=== PATIENT | male | born 1990 | race Caucasian/White ===

== ENCOUNTER 2017-10-21 16:32 | Emergency (ER) | payer BC ==
--- NOTE | 2017-10-21 18:06 | EDM.PDOC ---
ED HPI GENERAL MEDICAL PROBLEM - General Chief Complaint: Genitourinary Problem Stated Complaint: PAIN IN ABDOMEN AND TESTICLES Time Seen by Provider: 10/21/17 16:36 Source of Information: Reports: Patient History Limitations: Reports: No Limitations - History of Present Illness INITIAL COMMENTS - FREE TEXT/NARRATIVE: Presents to the ER with a one year history of testicular pain off-and-on. He noticed it yesterday and then today it was more constant, he called his primary care provider who told him to come to the ER. He states that both of his testicles are tender right a little more than left. He also has some pain radiating eating up into his groin and in the low back in the SI joint area. No fever, scrotal swelling, penile discharge, dysuria. He is sexually active with one long-term partner. He had a vasectomy one year ago. He is otherwise healthy with no chronic medical problems. bilateral testicle pain Pain Score (Numeric/FACES): 6 - Related Data Allergies Allergy/AdvReac Type Severity Reaction Status Date / Time No Known Allergies Allergy Verified 10/21/17 16:44 Home Meds: Home Meds Levofloxacin [Levaquin] 500 mg PO DAILY #10 tablet 10/21/17 [Rx] Past Medical History - Past Health History Medical/Surgical History: Denies Medical/Surgical History - Infectious Disease History Infectious Disease History: Reports: None Social & Family History - Family History Family Medical History: Noncontributory - Tobacco Use Smoking Status *Q: Current Every Day Smoker Years of Tobacco use: 8 Packs/Tins Daily: 0.3 - Caffeine Use Caffeine Use: Reports: Coffee - Alcohol Use Days Per Week of Alcohol Use: 2 Number of Drinks Per Day: 6 Total Drinks Per Week: 12 - Recreational Drug Use Recreational Drug Use: No ED ROS GENERAL - Review of Systems Review Of Systems: ROS reveals no pertinent complaints other than HPI. ED EXAM, RENAL/ - Physical Exam Exam: See Below Exam Limited By: No Limitations General Appearance: Alert, No Apparent Distress Ears: Normal External Exam Nose: Normal Inspection Throat/Mouth: Normal Inspection Head: Atraumatic, Normocephalic Neck: Normal Inspection Respiratory/Chest: No Respiratory Distress, Lungs Clear, Normal Breath Sounds Cardiovascular: Normal Peripheral Pulses, Regular Rate, Rhythm, No Murmur GI/Abdominal: Soft (Male) Exam: Normal Inspection, Circumcised, Testicular Tenderness (L), Testicular Tenderness (R). No: Inguinal Lymphadenopathy, Scrotal Swelling, Scrotum Tenderness (L), Testicular Mass, Urethral Discharge Course - Vital Signs Last Recorded V/S: Last Vital Signs Temp 36.3 C 10/21/17 16:45 Pulse 77 10/21/17 16:45 Resp 18 10/21/17 16:45 BP 142/73 H 10/21/17 16:45 Pulse Ox 97 10/21/17 16:45 - Orders/Labs/Meds Orders: Active Orders 24 hr Category Date Time Status Scrotal Duplex Ltd [US] Stat Exams 10/21/17 17:14 Ordered Testicular US [Scrotum and Contents] [US] Stat Exams 10/21/17 17:08 Ordered UA W/MICROSCOPIC [URIN] Stat Lab 10/21/17 17:07 Ordered Labs: Laboratory Tests 10/21/17 10/21/17 Range/Units 17:05 17:23 WBC 11.59 H (4.0-11.0) K/uL RBC 5.40 (4.50-5.90) M/uL Hgb 16.4 (13.0-17.0) g/dL Hct 47.2 (38.0-50.0) % MCV 87.4 (80.0-98.0) fL MCH 30.4 (27.0-32.0) pg MCHC 34.7 (31.0-37.0) g/dL RDW Std Deviation 41.7 (28.0-62.0) fl RDW Coeff of Philip 13 (11.0-15.0) % Plt Count 270 (150-400) K/uL MPV 10.30 (7.40-12.00) fL Neut % (Auto) 64.0 (48.0-80.0) % Lymph % (Auto) 25.7 (16.0-40.0) % [place] % (Auto) 8.3 (0.0-15.0) % Eos % (Auto) 1.2 (0.0-7.0) % Baso % (Auto) 0.8 (0.0-1.5) % Neut # (Auto) 7.4 H (1.4-5.7) K/uL Lymph # (Auto) 3.0 H (0.6-2.4) K/uL [place] # (Auto) 1.0 H (0.0-0.8) K/uL Eos # (Auto) 0.1 (0.0-0.7) K/uL Baso # (Auto) 0.1 (0.0-0.1) K/uL Nucleated RBC % 0.0 /100WBC Nucleated RBCs # 0 K/uL Urine Color YELLOW Urine Appearance CLEAR Urine pH 6.0 (5.0-8.0) Ur Specific [place] 1.025 (1.001-1.035) Urine Protein NEGATIVE (NEGATIVE) mg/dL Urine Glucose (UA) NEGATIVE (NEGATIVE) mg/dL Urine Ketones NEGATIVE (NEGATIVE) mg/dL Urine Occult Blood NEGATIVE (NEGATIVE) Urine Nitrite NEGATIVE (NEGATIVE) Urine Bilirubin NEGATIVE (NEGATIVE) Urine Urobilinogen 0.2 (<2.0) EU/dL Ur Leukocyte Esterase NEGATIVE (NEGATIVE) Urine RBC 0-1 (0-2/HPF) Urine WBC 0-1 (0-5/HPF) Ur Epithelial Cells RARE (NONE-FEW) Urine Bacteria RARE (NEGATIVE) Departure - Departure Time of Disposition: 18:54 Disposition: Home, Self-Care 01 Condition: Good Clinical Impression: Epididymitis - Discharge Information Prescriptions: Levofloxacin [Levaquin] 500 mg PO DAILY #10 tablet Referrals: Mohsen Loja MD [Primary Care Provider] - Forms: ED Department Discharge Additional Instructions: 1. Take your antibiotic daily as directed 2. Follow up with Dr. Loja. 3. Tylenol 500mg two tabs three times daily for pain 4. Scrotal support may be helpful to reduce pain. - My Orders Last 24 Hours: My Active Orders 10/21/17 17:07 UA W/MICROSCOPIC [URIN] Stat 10/21/17 17:08 Testicular US [Scrotum and Contents] [US] Stat - Assessment/Plan Last 24 Hours: My Active Orders 10/21/17 17:07 UA W/MICROSCOPIC [URIN] Stat 10/21/17 17:08 Testicular US [Scrotum and Contents] [US] Stat
--- NOTE | 2017-10-22 10:30 | US ---
EXAM DATE: 10/21/17 PATIENT'S AGE: 27 Patient: SUKUMAR RICE [facility] Facility: [facility], [place], [place] Site . Site : 1990 Study: US Testicle -10/21/2017 6:02:04 PM Ordering Physician: Doctor Ashton Final Report: INDICATION: Bilateral testicular tenderness TECHNIQUE: Ultrasound of the scrotum and contents. Sonographic richards scale images were obtained with spectral and color Doppler waveform and spectral waveform analysis of the testicles. COMPARISON: None FINDINGS: Right testicle: 4.2 centimeter x 2.7 centimeter x 2.9 centimeter. Multiple hyper : Foci without posterior shadowing. No masses. No suspicious calcifications. Normal arterial and venous and blood flow using Doppler and spectral waveform analysis. Left testicle: 4.0 centimeter x 2.1 centimeter x 2.9 centimeter. Multiple hyperechoic foci without posterior shadowing. No masses. No suspicious calcifications. Normal arterial and venous and blood flow using Doppler and spectral waveform analysis. Epididymis: Increased vascularity right epididymal head possibly representing epididymitis. Normal blood flow. Other: No sign of hydrocele. No sign of varicocele. Scrotal wall is normal. IMPRESSION: Hyperemic right epididymal head possibly representing epididymitis. Nonspecific bilateral testicular parenchymal echogenic foci possibly representing calcifications. Dictated by Floyd Martinez MD @ 10/21/2017 6:26:47 PM Dictated by: Floyd Martinez MD @ 10/21/2017 18:26:52 (Electronic Signature) Report Signed by Proxy. EDISON
--- NOTE | 2017-10-22 10:30 | US ---
EXAM DATE: 10/21/17 PATIENT'S AGE: 27 Patient: SUKUMAR RICE [facility] Facility: [facility], [place], [place] Site . Site : 1990 Study: US Testicle -10/21/2017 6:02:04 PM Ordering Physician: Doctor Ashton Final Report: INDICATION: Bilateral testicular tenderness TECHNIQUE: Ultrasound of the scrotum and contents. Sonographic richards scale images were obtained with spectral and color Doppler waveform and spectral waveform analysis of the testicles. COMPARISON: None FINDINGS: Right testicle: 4.2 centimeter x 2.7 centimeter x 2.9 centimeter. Multiple hyper : Foci without posterior shadowing. No masses. No suspicious calcifications. Normal arterial and venous and blood flow using Doppler and spectral waveform analysis. Left testicle: 4.0 centimeter x 2.1 centimeter x 2.9 centimeter. Multiple hyperechoic foci without posterior shadowing. No masses. No suspicious calcifications. Normal arterial and venous and blood flow using Doppler and spectral waveform analysis. Epididymis: Increased vascularity right epididymal head possibly representing epididymitis. Normal blood flow. Other: No sign of hydrocele. No sign of varicocele. Scrotal wall is normal. IMPRESSION: Hyperemic right epididymal head possibly representing epididymitis. Nonspecific bilateral testicular parenchymal echogenic foci possibly representing calcifications. Dictated by Floyd Martinez MD @ 10/21/2017 6:26:47 PM Dictated by: Floyd Martinez MD @ 10/21/2017 18:26:52 (Electronic Signature) Report Signed by Proxy. EDISON
== END 2017-10-21 19:05 | disposition home or self-care (01) ==
LOC: MW.ED 16:32
DX: N45.1 Epididymitis (principal); F17.210 Nicotine dependence, cigarettes, uncomplicated; Z79.899 Other long term (current) drug therapy
CPT/HCPCS: 36415; 76870; 76870-26; 81001; 85025; 93976; 93976-26; 99284-25

== ENCOUNTER 2018-09-26 13:06 | Emergency (ER) | payer BC ==
[2018-09-26] MEDS ORDERED: Ketorolac 30 MG/ML SDV IVPUSH ONE (13:10)
--- NOTE | 2018-09-26 13:11 | EDM.PDOC ---
ED HPI GENERAL MEDICAL PROBLEM - General Chief Complaint: Abdominal Pain Stated Complaint: STOMACH PAIN Time Seen by Provider: 09/26/18 13:09 Source of Information: Reports: Patient History Limitations: Reports: No Limitations - History of Present Illness INITIAL COMMENTS - FREE TEXT/NARRATIVE: HISTORY AND PHYSICAL: Abdominal Pain History of present illness: Patient is a 28 year old male who presents to the emergency room with complaints of abdominal pain x 2 weeks. He states he initially noticed the upper abdominal pain after eating but states now the pain is constant. Pain is mainly to the right upper quadrant and goes into the right flank. States he does have tenderness to both left and right upper quadrant with palpation. No previous history of heartburn or ulcers. Patient denies any fever, chills, headache, change in vision, syncope or near syncope. Denies any chest pain, back pain, shortness of breath or cough. Denies any nausea, vomiting, diarrhea, constipation or dysuria. Has not noted any blood in urine or stool. Patient has been eating and drinking appropriately. Review of systems: As per history of present illness and below otherwise all systems reviewed and negative. Past medical history: As per history of present illness and as reviewed below otherwise noncontributory. Surgical history: As per history of present illness and as reviewed below otherwise noncontributory. Social history: See social history for further information Family history: As per history of present illness and as reviewed below otherwise noncontributory. Physical exam: General: Well-developed and well-nourished 28-year-old male. Alert and oriented. Nontoxic appearing and in no acute distress. HEENT: Atraumatic, normocephalic, pupils equal and reactive bilaterally, negative for conjunctival pallor or scleral icterus, mucous membranes moist, trachea midline. No drooling or trismus noted. No meningeal signs. No hot potato voice noted. Lungs: Clear to auscultation, breath sounds equal bilaterally, chest nontender. Heart: S1S2, regular rate and rhythm without overt murmur Abdomen: Soft, nondistended, mild RUQ/LUQ pain. Negative for masses or hepatosplenomegaly. Negative for costovertebral tenderness. Pelvis: Stable nontender. Genitourinary: Deferred. Rectal: Deferred. Skin: Intact, warm, dry. No lesions or rashes noted. Extremities: Atraumatic, moves all extremities per self without difficulty or deficits, negative for cords or calf pain. Neurovascular unremarkable. Neuro: Awake, alert, oriented. Cranial nerves II through XII unremarkable. Cerebellum unremarkable. Motor and sensory unremarkable throughout. Exam nonfocal. Notes: CT of the abdomen and pelvis shows no acute abnormality. The pancreas, gallbladder, kidney are unremarkable. Appendix is a normal size and appearance. Patient does have a slightly elevated white count, no fever. Lipase is elevated. Vital signs are stable. Patient has declined any nausea or vomiting over the past 2 weeks or during his ER visit here today. We did review his labs and CT results. We'll give him a limited amount of pain medication and encouraged him to follow-up with his primary care provider Dr. Loja for the general surgeon for further evaluation/management and reassessment of the elevated lipase. Supportive care measures were reviewed and discussed. Voices understanding and is agreeable to plan of care. Denies any further questions or concerns at this time. Diagnostics: CBC, CMP, UA, lipase, CT abdomen and pelvis Therapeutics: IV fluids, Toradol Prescription: Tramadol Impression: Abdominal Pain Elevated Lipase Plan: 1. Increase oral fluids. 2. [place] diet over next 24-48 hours. 3. Take pain medication as prescribed. 4. Follow up with [facility] or General Surgeon. Return to the ED as needed and as discussed. Definitive disposition and diagnosis as appropriate pending reevaluation and review of above. Duration: Week(s): Location: Reports: Abdomen Right Abdominal Pain Score (Numeric/FACES): 9 - Related Data Allergies Allergy/AdvReac Type Severity Reaction Status Date / Time No Known Allergies Allergy Verified 09/26/18 13:14 Home Meds: Home Meds Folic Acid 1 mg PO DAILY 09/26/18 [History] Methotrexate 4 tab PO WEEKLY 09/26/18 [History] traMADol [Ultram] 50 mg PO Q4H PRN #20 tab 09/26/18 [Rx] Past Medical History - Past Health History Medical/Surgical History: Denies Medical/Surgical History - Infectious Disease History Infectious Disease History: Reports: None Social & Family History - Family History Family Medical History: Noncontributory - Caffeine Use Caffeine Use: Reports: Coffee ED ROS GENERAL - Review of Systems Review Of Systems: ROS reveals no pertinent complaints other than HPI. ED EXAM, GI/ABD - Physical Exam Exam: See Below (See dictation) Course - Vital Signs Last Recorded V/S: Last Vital Signs Temp 97.2 F 09/26/18 13:15 Pulse 52 L 09/26/18 13:15 Resp 16 09/26/18 13:15 BP 130/82 09/26/18 13:15 Pulse Ox 99 09/26/18 13:15 - Orders/Labs/Meds Orders: Active Orders 24 hr Category Date Time Status Sodium Chloride 0.9% [Normal Saline] 1,000 ml Med 09/26/18 13:15 Active IV ASDIRECTED Medication Orders Sodium Chloride (Normal Saline) 1,000 mls @ 999 mls/hr IV ASDIRECTED CYNDI Last Admin: 09/26/18 13:28 Dose: 999 mls/hr Labs: Laboratory Tests 09/26/18 09/26/18 09/26/18 Range/Units 13:25 13:25 13:25 WBC 11.06 H (4.0-11.0) K/uL RBC 5.19 (4.50-5.90) M/uL Hgb 15.6 (13.0-17.0) g/dL Hct 46.9 (38.0-50.0) % MCV 90.4 (80.0-98.0) fL MCH 30.1 (27.0-32.0) pg MCHC 33.3 (31.0-37.0) g/dL RDW Std Deviation 44.9 (28.0-62.0) fl RDW Coeff of Philip 14 (11.0-15.0) % Plt Count 264 (150-400) K/uL MPV 10.30 (7.40-12.00) fL Neut % (Auto) 63.1 (48.0-80.0) % Lymph % (Auto) 26.9 (16.0-40.0) % [place] % (Auto) 7.0 (0.0-15.0) % Eos % (Auto) 2.1 (0.0-7.0) % Baso % (Auto) 0.9 (0.0-1.5) % Neut # (Auto) 7.0 H (1.4-5.7) K/uL Lymph # (Auto) 3.0 H (0.6-2.4) K/uL [place] # (Auto) 0.8 (0.0-0.8) K/uL Eos # (Auto) 0.2 (0.0-0.7) K/uL Baso # (Auto) 0.1 (0.0-0.1) K/uL Nucleated RBC % 0.0 /100WBC Nucleated RBCs # 0 K/uL Sodium 143 (136-148) mmol/L Potassium 4.1 (3.5-5.1) mmol/L Chloride 106 (98-107) mmol/L Carbon Dioxide 24.4 (21.0-32.0) mmol/L BUN 13 (7.0-18.0) mg/dL Creatinine 1.1 (0.8-1.3) mg/dL Est Cr Clr Drug Dosing 89.42 mL/min Estimated GFR (MDRD) > 60.0 ml/min Glucose 113 H (74-106) mg/dL Calcium 9.0 (8.5-10.1) mg/dL Total Bilirubin 0.5 (0.2-1.0) mg/dL AST 11 L (15-37) IU/L ALT 53 (14-63) IU/L Alkaline Phosphatase 78 (46-116) U/L Total Protein 7.3 (6.4-8.2) g/dL Albumin 3.8 (3.4-5.0) g/dL Globulin 3.5 (2.6-4.0) g/dL Albumin/Globulin Ratio 1.1 (0.9-1.6) Lipase 933 H (73-393) U/L Urine Color Urine Appearance Urine pH (5.0-8.0) Ur Specific [place] (1.001-1.035) Urine Protein (NEGATIVE) mg/dL Urine Glucose (UA) (NEGATIVE) mg/dL Urine Ketones (NEGATIVE) mg/dL Urine Occult Blood (NEGATIVE) Urine Nitrite (NEGATIVE) Urine Bilirubin (NEGATIVE) Urine Urobilinogen (<2.0) EU/dL Ur Leukocyte Esterase (NEGATIVE) H. pylori IgG Antibody (NEG) 09/26/18 09/26/18 Range/Units 13:25 14:18 WBC (4.0-11.0) K/uL RBC (4.50-5.90) M/uL Hgb (13.0-17.0) g/dL Hct (38.0-50.0) % MCV (80.0-98.0) fL MCH (27.0-32.0) pg MCHC (31.0-37.0) g/dL RDW Std Deviation (28.0-62.0) fl RDW Coeff of Philip (11.0-15.0) % Plt Count (150-400) K/uL MPV (7.40-12.00) fL Neut % (Auto) (48.0-80.0) % Lymph % (Auto) (16.0-40.0) % [place] % (Auto) (0.0-15.0) % Eos % (Auto) (0.0-7.0) % Baso % (Auto) (0.0-1.5) % Neut # (Auto) (1.4-5.7) K/uL Lymph # (Auto) (0.6-2.4) K/uL [place] # (Auto) (0.0-0.8) K/uL Eos # (Auto) (0.0-0.7) K/uL Baso # (Auto) (0.0-0.1) K/uL Nucleated RBC % /100WBC Nucleated RBCs # K/uL Sodium (136-148) mmol/L Potassium (3.5-5.1) mmol/L Chloride (98-107) mmol/L Carbon Dioxide (21.0-32.0) mmol/L BUN (7.0-18.0) mg/dL Creatinine (0.8-1.3) mg/dL Est Cr Clr Drug Dosing mL/min Estimated GFR (MDRD) ml/min Glucose (74-106) mg/dL Calcium (8.5-10.1) mg/dL Total Bilirubin (0.2-1.0) mg/dL AST (15-37) IU/L ALT (14-63) IU/L Alkaline Phosphatase (46-116) U/L Total Protein (6.4-8.2) g/dL Albumin (3.4-5.0) g/dL Globulin (2.6-4.0) g/dL Albumin/Globulin Ratio (0.9-1.6) Lipase (73-393) U/L Urine Color YELLOW Urine Appearance CLEAR Urine pH 6.0 (5.0-8.0) Ur Specific [place] 1.025 (1.001-1.035) Urine Protein NEGATIVE (NEGATIVE) mg/dL Urine Glucose (UA) NEGATIVE (NEGATIVE) mg/dL Urine Ketones NEGATIVE (NEGATIVE) mg/dL Urine Occult Blood NEGATIVE (NEGATIVE) Urine Nitrite NEGATIVE (NEGATIVE) Urine Bilirubin NEGATIVE (NEGATIVE) Urine Urobilinogen 0.2 (<2.0) EU/dL Ur Leukocyte Esterase NEGATIVE (NEGATIVE) H. pylori IgG Antibody NEGATIVE (NEG) Meds: Medications Generic Name Dose Route Start Last Admin Trade Name Freq PRN Reason Stop Dose Admin Sodium Chloride 1,000 mls @ 999 mls/hr 09/26/18 13:15 09/26/18 13:28 Normal Saline IV 999 mls/hr ASDIRECTED CYNDI Administration Discontinued Medications Generic Name Dose Route Start Last Admin Trade Name Freq PRN Reason Stop Dose Admin Iopamidol 100 ml 09/26/18 14:33 09/26/18 14:34 Isovue Multipack-370 (76%) IVPUSH 09/26/18 14:34 100 ml ONETIME STA Administration Ketorolac Tromethamine 30 mg 09/26/18 13:10 09/26/18 13:28 Toradol IVPUSH 09/26/18 13:11 30 mg ONETIME ONE Administration Morphine Sulfate 2 mg 09/26/18 15:00 09/26/18 15:40 Morphine IVPUSH 09/26/18 15:01 Not Given ONETIME ONE Ondansetron HCl 4 mg 09/26/18 15:00 09/26/18 15:39 Zofran IVPUSH 09/26/18 15:01 Not Given ONETIME ONE Departure - Departure Time of Disposition: 15:40 Disposition: Home, Self-Care 01 Clinical Impression: Elevated lipase Abdominal pain Qualifiers: Abdominal location: upper abdomen, unspecified Qualified Code(s): R10.10 - Upper abdominal pain, unspecified - Discharge Information Prescriptions: traMADol [Ultram] 50 mg PO Q4H PRN #20 tab PRN Reason: Pain Referrals: Mohsen Loja MD [Primary Care Provider] - Forms: ED Department Discharge Additional Instructions: The following information is given to patients seen in the emergency department who are being discharged to home. This information is to outline your options for follow-up care. We provide all patients seen in our emergency department with a follow-up referral. The need for follow-up, as well as the timing and circumstances, are variable depending upon the specifics of your emergency department visit. If you don't have a primary care physician on staff, we will provide you with a referral. We always advise you to contact your personal physician following an emergency department visit to inform them of the circumstance of the visit and for follow-up with them and/or the need for any referrals to a consulting specialist. The emergency department will also refer you to a specialist when appropriate. This referral assures that you have the opportunity for follow-up care with a specialist. All of these measure are taken in an effort to provide you with optimal care, which includes your follow-up. Under all circumstances we always encourage you to contact your private physician who remains a resource for coordinating your care. When calling for follow-up care, please make the office aware that this follow-up is from your recent emergency room visit. If for any reason you are refused follow-up, please contact the [facility] Emergency Department at and asked to speak to the emergency department charge nurse. [facility] [address] [place] [address] [address] [facility] - General Surgery Professional Building [address] [place] [address], [address] [place] [address] 1. Increase oral fluids. 2. [place] diet over next 24-48 hours. 3. Take pain medication as prescribed. 4. Follow up with [facility] or General Surgeon. Return to the ED as needed and as discussed. - My Orders Last 24 Hours: My Active Orders 09/26/18 13:15 Sodium Chloride 0.9% [Normal Saline] 1,000 ml IV ASDIRECTED - Assessment/Plan Last 24 Hours: My Active Orders 09/26/18 13:15 Sodium Chloride 0.9% [Normal Saline] 1,000 ml IV ASDIRECTED
[2018-09-26] MEDS ORDERED: Sodium Chloride 0.9% 1,000 ML IV SCH (13:15)
[2018-09-26 13:56] LABS: CHLORIDE,CL 106 mmol/L (98-107); SODIUM,NA 143 mmol/L (136-148)
[2018-09-26] MEDS ORDERED: Iopamidol 755 MG/ML 500 ML Multipack Bottle IVPUSH STA (14:33)
[2018-09-26] MEDS ORDERED: Morphine 2 MG/ML Syringe IVPUSH ONE (15:00)
[2018-09-26] MEDS ORDERED: Ondansetron 4 MG/2 ML SDV IVPUSH ONE (15:00)
--- NOTE | 2018-09-26 15:29 | CT ---
INDICATION: BILAT UPPER ABDOMINAL PAIN RADIATING INTO RIGHT FLANK/BACK FOR 2 WEEKS ON AND OFF. PT STATES STARTED AGAIN YESTERDAY AT NOON AND NEVER WENT AWAY TECHNIQUE: CT abdomen and pelvis acquired with i.v. 100 mL Isovue 370. Coronal and sagittal reformats were obtained. 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 Lower chest: Unremarkable. Liver: Unremarkable. Spleen: Unremarkable. Pancreas: Unremarkable. Gallbladder and bile ducts: Unremarkable. Kidneys: Unremarkable. No kidney or ureteral stones and no hydronephrosis seen. Simple cyst in right kidney measures 2.5 cm on series 201, image 69. Adrenal glands: Unremarkable. GI tract: Unremarkable. The appendix is normal in appearance and size. Vascular: Unremarkable. Lymph nodes: Unremarkable. Miscellaneous: Unremarkable. No pneumoperitoneum is seen. No significant ascites is noted. Pelvic Organs: Unremarkable. Bones: Unremarkable for age. IMPRESSION: 1. No acute abnormality in the abdomen or pelvis. No clear etiology identified for patient`s clinical symptoms of bilateral upper abdominal pain. Dictated by Steve Chow MD @ 09/26/2018 3:27:24 PM Please note that all CT scans at this facility use dose modulation, iterative reconstruction, and/or weight-based dosing when appropriate to reduce radiation dose to as low as reasonably achievable. Dictated by: Steve Chow MD @ 09/26/2018 15:27:35 (Electronically Signed)
== END 2018-09-26 15:49 | disposition home or self-care (01) ==
LOC: MW.ED 13:06
DX: R10.10 Upper abdominal pain, unspecified (principal); R74.8 Abnormal levels of other serum enzymes; Z79.899 Other long term (current) drug therapy
CPT/HCPCS: 36415; 74177; 80053; 81003; 83690; 85025; 86677; 96361; 96374; 99284; J1885; J7040; Q9967

== ENCOUNTER 2018-09-27 02:28 | Observation (INO) | payer BC ==
[2018-09-27] MEDS ORDERED: Ondansetron 4 MG/2 ML SDV IVPUSH ONE (02:47)
[2018-09-27] MEDS ORDERED: Morphine 2 MG/ML Syringe IVPUSH ONE (02:47)
[2018-09-27] MEDS ORDERED: Sodium Chloride 0.9% 10 ML Syringe FLUSH PRN (02:47)
[2018-09-27] MEDS ORDERED: Pantoprazole 40 MG Vial IVPUSH ONE (02:47)
[2018-09-27] MEDS ORDERED: Sodium Chloride 0.9% 2.5 ML Syringe FLUSH PRN (02:47)
[2018-09-27] MEDS ORDERED: Sodium Chloride 0.9% 1,000 ML IV ONE ×3 (02:47→09:59)
--- NOTE | 2018-09-27 02:51 | EDM.PDOC ---
ED HPI GENERAL MEDICAL PROBLEM - General Chief Complaint: Abdominal Pain Stated Complaint: STOMACH PAIN Time Seen by Provider: 09/27/18 02:42 - History of Present Illness INITIAL COMMENTS - FREE TEXT/NARRATIVE: HISTORY AND PHYSICAL: History of present illness: The patient is a 28-year-old male who is a history of a psoriasis variant for which she takes medications and he was seen here yesterday in our emergency department for upper abdominal pain and had a full workup including labs and a CAT scan and represented for persistent epigastric pain which has worsened. I reviewed his workup yesterday which included all normal blood tests except for a lipase of [address] scan. The patient says he went home and he was pushing hydration and eating small bites of food and the pain gradually increased and is more severe than it was yesterday. He's had nausea without vomiting and the pain is still in the epigastric area radiating to his back. He' s had no fevers chills cough or chest pain. The pain does not radiate to his lower abdomen or to the right side he has never had any GI problems or abdominal surgical history. He says he only drinks socially. The patient said he had a normal bowel movement earlier today which was not black or bloody and was formed. The patient was given tramadol yesterday and his ED visit and he says that is not controlling his pain Review of systems: As per history of present illness and below otherwise all systems reviewed and negative. Past medical history: As per history of present illness and as reviewed below otherwise noncontributory. Surgical history: As per history of present illness and as reviewed below otherwise noncontributory. Social history: No reported history of drug or alcohol abuse. Family history: As per history of present illness and as reviewed below otherwise noncontributory. Physical exam: General: Well-developed well-nourished man who is nontoxic and mildly overweight and is in no overt distress. Vital signs are noted by me HEENT: Atraumatic, normocephalic, negative for conjunctival pallor or scleral icterus, mucous membranes moist, throat clear, neck supple, nontender, trachea midline. Lungs: Clear to auscultation, breath sounds equal bilaterally, chest nontender. Heart: S1S2, regular rate and rhythm no overt murmurs Abdomen: Soft, nondistended, moderate epigastric tenderness but no significant right upper quadrant tenderness and mild left upper quadrant tenderness without rebound or guarding, bowel sounds are hypoactive. Negative for masses or hepatosplenomegaly. Negative for costovertebral tenderness. Pelvis: Stable nontender. Genitourinary: Deferred. Rectal: Deferred. Extremities: Atraumatic, negative for cords or calf pain. Neurovascular unremarkable. Neuro: Awake, alert, oriented. Cranial nerves II through XII unremarkable. Cerebellum unremarkable. Motor and sensory unremarkable throughout. Exam nonfocal. Diagnostics: CBC CMP amylase and lipase Patient had an H. pylori yesterday which was negative as well as a CT scan and all of his labs and testing were reviewed by me Therapeutics: IV placement, IV fluids morphine Zofran Protonix Dilaudid I discussed all testing results with the patient any saying that he still having this severe epigastric pain. I discussed the case with Dr. Schmid our hospitalist at 3:57 AM and he agrees to not reimage the patient and to admit him for IV fluids and bowel rest and probable clinical pancreatitis. The patient is agreeable to this Impression: Upper abdominal pain/elevated lipase, clinical pancreatitis Definitive disposition and diagnosis as appropriate pending reevaluation and review of above. epigastric Pain Score (Numeric/FACES): 10 - Related Data Allergies Allergy/AdvReac Type Severity Reaction Status Date / Time No Known Allergies Allergy Verified 09/27/18 02:41 Home Meds: Home Meds Folic Acid 1 mg PO DAILY 09/26/18 [History] Methotrexate 4 tab PO WEEKLY 09/26/18 [History] traMADol [Ultram] 50 mg PO Q4H PRN #20 tab 09/26/18 [Rx] Past Medical History - Past Health History Medical/Surgical History: Denies Medical/Surgical History Psychiatric History: Reports: PTSD Dermatologic History: Reports: Eczema - Infectious Disease History Infectious Disease History: Reports: None Social & Family History - Family History Family Medical History: Noncontributory - Tobacco Use Smoking Status *Q: Current Every Day Smoker Years of Tobacco use: 10 Packs/Tins Daily: 1 - Caffeine Use Caffeine Use: Reports: Coffee - Recreational Drug Use Recreational Drug Use: No ED ROS GENERAL - Review of Systems Review Of Systems: ROS reveals no pertinent complaints other than HPI. ED EXAM, GENERAL - Physical Exam Exam: See Below (See dictation) Course - Vital Signs Last Recorded V/S: Last Vital Signs Temp 36.1 C 09/27/18 02:30 Pulse 51 L 09/27/18 02:30 Resp 18 09/27/18 02:30 BP 126/78 09/27/18 02:30 Pulse Ox 96 09/27/18 02:30 - Orders/Labs/Meds Orders: Active Orders 24 hr Category Date Time Status Patient Status [ADT] Stat ADT 09/27/18 03:57 Ordered Sodium Chloride 0.9% [Normal Saline] 1,000 ml Med 09/27/18 04:00 Active IV ASDIRECTED Sodium Chloride 0.9% [Saline Flush] Med 09/27/18 02:47 Active 10 ml FLUSH ASDIRECTED PRN Sodium Chloride 0.9% [Saline Flush] Med 09/27/18 02:47 Active 2.5 ml FLUSH ASDIRECTED PRN Saline Lock Insert [OM.PC] Stat Oth 09/27/18 02:46 Ordered Medication Orders Sodium Chloride (Normal Saline) 1,000 mls @ 150 mls/hr IV ASDIRECTED CYNDI Sodium Chloride (Saline Flush) 10 ml FLUSH ASDIRECTED PRN PRN Reason: Keep Vein Open Sodium Chloride (Saline Flush) 2.5 ml FLUSH ASDIRECTED PRN PRN Reason: Keep Vein Open Labs: Laboratory Tests 09/27/18 09/27/18 Range/Units 02:50 02:50 WBC 11.60 H (4.0-11.0) K/uL RBC 4.91 (4.50-5.90) M/uL Hgb 14.7 (13.0-17.0) g/dL Hct 44.5 (38.0-50.0) % MCV 90.6 (80.0-98.0) fL MCH 29.9 (27.0-32.0) pg MCHC 33.0 (31.0-37.0) g/dL RDW Std Deviation 45.5 (28.0-62.0) fl RDW Coeff of Philip 14 (11.0-15.0) % Plt Count 238 (150-400) K/uL MPV 10.20 (7.40-12.00) fL Neut % (Auto) 59.7 (48.0-80.0) % Lymph % (Auto) 27.3 (16.0-40.0) % [place] % (Auto) 10.4 (0.0-15.0) % Eos % (Auto) 1.9 (0.0-7.0) % Baso % (Auto) 0.7 (0.0-1.5) % Neut # (Auto) 6.9 H (1.4-5.7) K/uL Lymph # (Auto) 3.2 H (0.6-2.4) K/uL [place] # (Auto) 1.2 H (0.0-0.8) K/uL Eos # (Auto) 0.2 (0.0-0.7) K/uL Baso # (Auto) 0.1 (0.0-0.1) K/uL Nucleated RBC % 0.0 /100WBC Nucleated RBCs # 0 K/uL Sodium 142 (136-148) mmol/L Potassium 4.4 (3.5-5.1) mmol/L Chloride 108 H (98-107) mmol/L Carbon Dioxide 25.9 (21.0-32.0) mmol/L BUN 18 (7.0-18.0) mg/dL Creatinine 1.1 (0.8-1.3) mg/dL Est Cr Clr Drug Dosing 89.42 mL/min Estimated GFR (MDRD) > 60.0 ml/min Glucose 114 H (74-106) mg/dL Calcium 8.9 (8.5-10.1) mg/dL Total Bilirubin 0.3 (0.2-1.0) mg/dL AST 9 L (15-37) IU/L ALT 45 (14-63) IU/L Alkaline Phosphatase 70 (46-116) U/L Total Protein 6.7 (6.4-8.2) g/dL Albumin 3.4 (3.4-5.0) g/dL Globulin 3.3 (2.6-4.0) g/dL Albumin/Globulin Ratio 1.0 (0.9-1.6) Amylase 41 (25-115) U/L Lipase 786 H (73-393) U/L Meds: Medications Generic Name Dose Route Start Last Admin Trade Name Freq PRN Reason Stop Dose Admin Sodium Chloride 1,000 mls @ 150 mls/hr 09/27/18 04:00 Normal Saline IV ASDIRECTED CYNDI Sodium Chloride 10 ml 05/12/19 02:47 Saline Flush FLUSH ASDIRECTED PRN Keep Vein Open Sodium Chloride 2.5 ml 09/27/18 02:47 Saline Flush FLUSH ASDIRECTED PRN Keep Vein Open Discontinued Medications Generic Name Dose Route Start Last Admin Trade Name Freq PRN Reason Stop Dose Admin Hydromorphone HCl 1 mg 09/27/18 03:53 Dilaudid IVPUSH 09/27/18 03:54 ONETIME ONE Sodium Chloride 1,000 mls @ 999 mls/hr 09/27/18 02:47 09/27/18 03:04 Normal Saline IV 09/27/18 03:47 999 mls/hr STAT ONE Administration Sodium Chloride Confirm 09/27/18 02:58 09/27/18 03:15 Normal Saline Administered 09/27/18 02:59 1 mls/hr Dose Administration 20 mls @ as directed .ROUTE .STK-MED ONE Morphine Sulfate 4 mg 09/27/18 02:47 09/27/18 03:09 Morphine IVPUSH 09/27/18 02:48 4 mg ONETIME ONE Administration Ondansetron HCl 4 mg 09/27/18 02:47 09/27/18 03:06 Zofran IVPUSH 09/27/18 02:48 4 mg ONETIME ONE Administration Pantoprazole Sodium 80 mg 09/27/18 02:47 09/27/18 03:14 Protonix Iv IVPUSH 09/27/18 02:48 80 mg .BOLUS ONE Administration Departure - Departure Time of Disposition: 03:59 Disposition: Refer to Observation Condition: Good Clinical Impression: Elevated lipase Abdominal pain Qualifiers: Abdominal location: epigastric Qualified Code(s): R10.13 - Epigastric pain - Discharge Information Referrals: PCP,None [Primary Care Provider] - Forms: ED Department Discharge - My Orders Last 24 Hours: My Active Orders 09/27/18 02:46 Saline Lock Insert [OM.PC] Stat 09/27/18 02:47 Sodium Chloride 0.9% [Saline Flush] 10 ml FLUSH ASDIRECTED PRN Sodium Chloride 0.9% [Saline Flush] 2.5 ml FLUSH ASDIRECTED PRN 09/27/18 03:57 Patient Status [ADT] Stat 09/27/18 04:00 Sodium Chloride 0.9% [Normal Saline] 1,000 ml IV ASDIRECTED - Assessment/Plan Last 24 Hours: My Active Orders 09/27/18 02:46 Saline Lock Insert [OM.PC] Stat 09/27/18 02:47 Sodium Chloride 0.9% [Saline Flush] 10 ml FLUSH ASDIRECTED PRN Sodium Chloride 0.9% [Saline Flush] 2.5 ml FLUSH ASDIRECTED PRN 09/27/18 03:57 Patient Status [ADT] Stat 09/27/18 04:00 Sodium Chloride 0.9% [Normal Saline] 1,000 ml IV ASDIRECTED
[2018-09-27] MEDS ORDERED: Sodium Chloride 0.9% 20 ML ONE (02:58)
[2018-09-27 03:20] LABS: CHLORIDE,CL 108 mmol/L (98-107); SODIUM,NA 142 mmol/L (136-148)
[2018-09-27] MEDS ORDERED: HYDROmorphone 1 MG/ML Syringe IVPUSH ONE (03:53)
[2018-09-27] MEDS ORDERED: Sodium Chloride 0.9% 1,000 ML IV SCH ×2 (04:00→07:00)
[2018-09-27] MEDS: HYDROmorphone 1 MG/ML Syringe IVPUSH PRN ×2 (07:51→12:50)
[2018-09-27] MEDS: Sodium Chloride 0.9% 1,000 ML IV SCH ×4 (07:57→22:41)
--- NOTE | 2018-09-27 08:02 | PCM.HP ---
H&P History of Present Illness - General Date of Service: 09/27/18 Admit Problem/Dx: Admission Diagnosis/Problem Admission Diagnosis/Problem Abdominal pain - History of Present Illness Initial Comments - Free Text/Narative: 28M with a history of psoriasis on Methotrexate, folic acid that presented to the ER with a chief complaint of abdominal pain. Patient states that 2 weeks ago , he had an episode similar to this that had lasted for 2 days and then subsided. He had then been comfortable up until 2 nights ago, when the symptoms returned. Pain is located in the epigastric region, radiating to his back. He presented to the ER yesterday. CT scan of the abdomen/pelvis was unremarkable. He had an elevated lipase of 933 and was discharged home with instructions. However, patient states that the pain returned and was unbearable so he returned. Repeat lipase has decreased to 786. Right now, his pain has improved with dilaudid PRN. He denies nausea. Methotrexate was started 4 weeks ago. He is also on folic acid. He's on no other medications. He tells me that he had 1-2 beers 3 days ago, but is not a heavy drinker. He is unsure of his cholesterol levels. He has no history of gallbladder/pancreas pathology. Epigastric Pain Score (Numeric/FACES): 4 - Related Data Allergies/Adverse Reactions: Allergies Allergy/AdvReac Type Severity Reaction Status Date / Time No Known Allergies Allergy Verified 09/27/18 02:41 Home Medications: Home Meds Folic Acid 1 mg PO DAILY 09/26/18 [History] Methotrexate 4 tab PO WEEKLY 09/26/18 [History] traMADol [Ultram] 50 mg PO Q4H PRN #20 tab 09/26/18 [Rx] Past Medical History - Past Health History Medical/Surgical History: Denies Medical/Surgical History Psychiatric History: Reports: PTSD Dermatologic History: Reports: Eczema, Other (See Below) Other Dermatologic History: Psoriasis - Infectious Disease History Infectious Disease History: Reports: None Social & Family History - Family History Family Medical History: Noncontributory - Tobacco Use Smoking Status *Q: Current Every Day Smoker Years of Tobacco use: 10 Packs/Tins Daily: 0.2 Used Tobacco, but Quit: No Second Hand Smoke Exposure: No - Caffeine Use Caffeine Use: Reports: Coffee, Soda - Recreational Drug Use Recreational Drug Use: No H&P Review of Systems - Review of Systems: Review Of Systems: ROS reveals no pertinent complaints other than HPI. Exam - Exam Exam: See Below - Vital Signs Vital Signs: Last Vital Signs Temp 35.9 C 09/27/18 07:28 Pulse 50 L 09/27/18 07:28 Resp 16 09/27/18 07:28 BP 131/74 09/27/18 07:28 Pulse Ox 98 09/27/18 07:28 Weight: 92.669 kg - Exam General: Alert, Oriented, 4 HEENT: PERRLA, Hearing Intact, Mucosa Moist & [place], Nares Patent, Normal Nasal Septum, Posterior Pharynx Clear, Conjunctiva Clear, EOMI, EACs Clear, TMs Clear Neck: Supple, Trachea Midline, 2 Lungs: Clear to Auscultation, Normal Respiratory Effort Cardiovascular: Regular Rate, Regular Rhythm GI/Abdominal Exam: Normal Bowel Sounds, No Organomegaly, No Distention, No Mass , Other (epigastric tenderness. no rebound tenderness. ) Back Exam: Normal Inspection, Full Range of Motion, NT Extremities: Normal Inspection, Normal Range of Motion, Non-Tender, No Pedal Edema, Normal Capillary Refill Peripheral Pulses: 2+: Dorsalis Pedis (L), Dorsalis Pedis (R) Skin: Warm, Dry, Intact, Other (chronic psroasis on palms) Neurological: Cranial Nerves Intact, Reflexes Equal Bilateral Psychiatric: Alert, Normal Affect, Normal Mood - Patient Data Lab Results Last 24 hrs: Laboratory Results - last 24 hr 09/27/18 09/27/18 Range/Units 02:50 02:50 WBC 11.60 H (4.0-11.0) K/uL RBC 4.91 (4.50-5.90) M/uL Hgb 14.7 (13.0-17.0) g/dL Hct 44.5 (38.0-50.0) % MCV 90.6 (80.0-98.0) fL MCH 29.9 (27.0-32.0) pg MCHC 33.0 (31.0-37.0) g/dL RDW Std Deviation 45.5 (28.0-62.0) fl RDW Coeff of Philip 14 (11.0-15.0) % Plt Count 238 (150-400) K/uL MPV 10.20 (7.40-12.00) fL Neut % (Auto) 59.7 (48.0-80.0) % Lymph % (Auto) 27.3 (16.0-40.0) % [place] % (Auto) 10.4 (0.0-15.0) % Eos % (Auto) 1.9 (0.0-7.0) % Baso % (Auto) 0.7 (0.0-1.5) % Neut # (Auto) 6.9 H (1.4-5.7) K/uL Lymph # (Auto) 3.2 H (0.6-2.4) K/uL [place] # (Auto) 1.2 H (0.0-0.8) K/uL Eos # (Auto) 0.2 (0.0-0.7) K/uL Baso # (Auto) 0.1 (0.0-0.1) K/uL Nucleated RBC % 0.0 /100WBC Nucleated RBCs # 0 K/uL Sodium 142 (136-148) mmol/L Potassium 4.4 (3.5-5.1) mmol/L Chloride 108 H (98-107) mmol/L Carbon Dioxide 25.9 (21.0-32.0) mmol/L BUN 18 (7.0-18.0) mg/dL Creatinine 1.1 (0.8-1.3) mg/dL Est Cr Clr Drug Dosing 89.42 mL/min Estimated GFR (MDRD) > 60.0 ml/min Glucose 114 H (74-106) mg/dL Calcium 8.9 (8.5-10.1) mg/dL Total Bilirubin 0.3 (0.2-1.0) mg/dL AST 9 L (15-37) IU/L ALT 45 (14-63) IU/L Alkaline Phosphatase 70 (46-116) U/L Total Protein 6.7 (6.4-8.2) g/dL Albumin 3.4 (3.4-5.0) g/dL Globulin 3.3 (2.6-4.0) g/dL Albumin/Globulin Ratio 1.0 (0.9-1.6) Amylase 41 (25-115) U/L Lipase 786 H (73-393) U/L Result Diagrams: 09/27/18 02:50 09/27/18 02:50 Problem List Initiated/Reviewed/Updated: Yes Orders Last 24hrs: Active Orders 24 hr Category Date Time Status Patient Status [ADT] Stat ADT 09/27/18 03:57 Active Nothing Per Oral Diet [DIET] Diet 09/27/18 Breakfast Active LIPID PANEL [CHEM] Routine Lab 09/27/18 07:54 Ordered HYDROmorphone [Dilaudid] Med 09/27/18 05:56 Active 0.5 mg IVPUSH Q3H PRN Sodium Chloride 0.9% [Normal Saline] 1,000 ml Med 09/27/18 07:00 Active IV ASDIRECTED Sodium Chloride 0.9% [Normal Saline] 1,000 ml Med 09/27/18 08:00 Ordered IV ASDIRECTED Sodium Chloride 0.9% [Saline Flush] Med 09/27/18 02:47 Active 10 ml FLUSH ASDIRECTED PRN Sodium Chloride 0.9% [Saline Flush] Med 09/27/18 02:47 Active 2.5 ml FLUSH ASDIRECTED PRN Saline Lock Insert [OM.PC] Stat Oth 09/27/18 02:46 Ordered Medication Orders Hydromorphone HCl (Dilaudid) 0.5 mg IVPUSH Q3H PRN PRN Reason: Pain Last Admin: 09/27/18 07:51 Dose: 0.5 mg Sodium Chloride (Normal Saline) 1,000 mls @ 200 mls/hr IV ASDIRECTED CYNDI Sodium Chloride (Normal Saline) 1,000 mls @ 200 mls/hr IV ASDIRECTED CYNDI Sodium Chloride (Saline Flush) 10 ml FLUSH ASDIRECTED PRN PRN Reason: Keep Vein Open Sodium Chloride (Saline Flush) 2.5 ml FLUSH ASDIRECTED PRN PRN Reason: Keep Vein Open Assessment/Plan Comment:: Assessment: #1. Acute pancreatitis #2. Epigastric pain secondary to #1 #3. Leukocytosis #4. Mild leukocytosis #5. Elevated glucose #6. History of psoriasis Plan: #1. Admit to observation. Vitals per floor. NPO. Full code #2. IV NS 200ml/h #3. Lipid panel, a1c #4. Pain control as ordered
[2018-09-27 09:26] LABS: HEMOGLOBIN A1C 5.9 % (4.5-6.2)
[2018-09-27] MEDS ORDERED: Ondansetron 4 MG/2 ML SDV IVPUSH PRN (19:04)
[2018-09-28] MEDS: Sodium Chloride 0.9% 1,000 ML IV SCH ×2 (03:44→08:55)
[2018-09-28 06:22] LABS: CHLORIDE,CL 108 mmol/L (98-107); SODIUM,NA 143 mmol/L (136-148)
--- NOTE | 2018-09-28 12:44 | PCM.DCSUM1 ---
<Fam Zheng - Last Filed: 09/28/18 12:41> Discharge Summary - Hospital Course Free Text/Narrative:: Admission date: 09/27/2018 Discharge date: 09/28/2018 Admission diagnosis: #1. Acute pancreatitis #2. Epigastric pain secondary to #1 #3. Leukocytosis #4. History of psoriasis Discharge diagnosis: #1. Acute pancreatitis - improved Hospital course: 28M hx of psoriasis on methotrexate admitted for acute pancreatitis. Patient was kept NPO and on fluids, his pain resolved and diet was advanced. He tolerated this and went home. He recently started methotrexate , which although is a rare side effect, can be the culprit. I advised against further use of this. - Discharge Data Discharge Date: 09/28/18 Discharge Disposition: Home, Self-Care 01 Condition: Fair - Patient Instructions Diet: Usual Diet as Tolerated Activity: As Tolerated Notify Provider of: Fever, Increased Pain, Nausea and/or Vomiting Other/Special Instructions: Refrain from alcohol, methotrexate use. - Discharge Plan Home Medications: Home Meds Folic Acid 1 mg PO DAILY 09/26/18 [History] Methotrexate 4 tab PO WEEKLY 09/26/18 [History] traMADol [Ultram] 50 mg PO Q4H PRN #20 tab 09/26/18 [Rx] Patient Handouts: Abdominal Pain, Adult, [id number] Referrals: [facility] [Outside] Mohsen Loja MD [Physician] - 10/07/18 12:30 pm - Discharge Summary/Plan Comment DC Time >30 min.: No - Patient Data Vitals - Most Recent: Last Vital Signs Temp 36.6 C 09/28/18 07:20 Pulse 55 L 09/28/18 07:20 Resp 16 09/28/18 07:20 BP 127/67 09/28/18 07:20 Pulse Ox 98 09/28/18 07:20 Weight - Most Recent: 92.669 kg I&O - Last 24 hours: Intake & Output 09/27/18 09/28/18 09/28/18 22:59 06:59 14:59 Intake Total 2215 1800 Output Total 2330 1660 Balance -115 140 Lab Results - Last 24 hrs: Laboratory Results - last 24 hr 09/28/18 09/28/18 Range/Units 05:48 05:48 WBC 8.05 (4.0-11.0) K/uL RBC 4.65 (4.50-5.90) M/uL Hgb 13.7 (13.0-17.0) g/dL Hct 42.2 (38.0-50.0) % MCV 90.8 (80.0-98.0) fL MCH 29.5 (27.0-32.0) pg MCHC 32.5 (31.0-37.0) g/dL RDW Std Deviation 45.3 (28.0-62.0) fl RDW Coeff of [place] 14 (11.0-15.0) % Plt Count 215 (150-400) K/uL MPV 10.30 (7.40-12.00) fL Neut % (Auto) 62.8 (48.0-80.0) % Lymph % (Auto) 25.0 (16.0-40.0) % [place] % (Auto) 9.9 (0.0-15.0) % Eos % (Auto) 1.7 (0.0-7.0) % Baso % (Auto) 0.6 (0.0-1.5) % Neut # (Auto) 5.1 (1.4-5.7) K/uL Lymph # (Auto) 2.0 (0.6-2.4) K/uL [place] # (Auto) 0.8 (0.0-0.8) K/uL Eos # (Auto) 0.1 (0.0-0.7) K/uL Baso # (Auto) 0.1 (0.0-0.1) K/uL Nucleated RBC % 0.0 /100WBC Nucleated RBCs # 0 K/uL Sodium 143 (136-148) mmol/L Potassium 4.2 (3.5-5.1) mmol/L Chloride 108 H (98-107) mmol/L Carbon Dioxide 25.8 (21.0-32.0) mmol/L BUN 6 L (7.0-18.0) mg/dL Creatinine 1.0 (0.8-1.3) mg/dL Est Cr Clr Drug Dosing 98.86 mL/min Estimated GFR (MDRD) > 60.0 ml/min Glucose 86 (74-106) mg/dL Calcium 8.6 (8.5-10.1) mg/dL Med Orders - Current: Current Medications Discontinued Medications Hydromorphone HCl (Dilaudid) 1 mg IVPUSH ONETIME ONE Stop: 09/27/18 03:54 Last Admin: 09/27/18 04:16 Dose: 1 mg Hydromorphone HCl (Dilaudid) 0.5 mg IVPUSH Q3H PRN PRN Reason: Pain Last Admin: 09/27/18 12:50 Dose: 0.5 mg Sodium Chloride (Normal Saline) 1,000 mls @ 999 mls/hr IV STAT ONE Stop: 09/27/18 03:47 Last Admin: 09/27/18 03:04 Dose: 999 mls/hr Sodium Chloride (Normal Saline) Confirm Administered Dose 20 mls @ as directed .ROUTE .STK-MED ONE Stop: 09/27/18 02:59 Last Admin: 09/27/18 03:15 Dose: 1 mls/hr Sodium Chloride (Normal Saline) 1,000 mls @ 150 mls/hr IV ASDIRECTED CYNDI Last Admin: 09/27/18 04:15 Dose: 150 mls/hr Sodium Chloride (Normal Saline) 1,000 mls @ 999 mls/hr IV .Bolus ONE Stop: 09/27/18 06:50 Last Admin: 09/27/18 05:58 Dose: 999 mls/hr Sodium Chloride (Normal Saline) 1,000 mls @ 200 mls/hr IV ASDIRECTED CYNDI Sodium Chloride (Normal Saline) 1,000 mls @ 200 mls/hr IV ASDIRECTED CYNDI Last Admin: 09/28/18 08:55 Dose: 200 mls/hr Sodium Chloride (Normal Saline) 1,000 mls @ 999 mls/hr IV STAT ONE Stop: 09/27/18 10:59 Last Admin: 09/27/18 11:04 Dose: 999 mls/hr Morphine Sulfate (Morphine) 4 mg IVPUSH ONETIME ONE Stop: 09/27/18 02:48 Last Admin: 09/27/18 03:09 Dose: 4 mg Ondansetron HCl (Zofran) 4 mg IVPUSH ONETIME ONE Stop: 09/27/18 02:48 Last Admin: 09/27/18 03:06 Dose: 4 mg Ondansetron HCl (Zofran) 4 mg IVPUSH Q4H PRN PRN Reason: Nausea Last Admin: 09/27/18 19:37 Dose: 4 mg Pantoprazole Sodium (Protonix Iv) 80 mg IVPUSH .BOLUS ONE Stop: 09/27/18 02:48 Last Admin: 09/27/18 03:14 Dose: 80 mg Sodium Chloride (Saline Flush) 10 ml FLUSH ASDIRECTED PRN PRN Reason: Keep Vein Open Sodium Chloride (Saline Flush) 2.5 ml FLUSH ASDIRECTED PRN PRN Reason: Keep Vein Open <Mars Schmid - Last Filed: 09/29/18 19:47> - Patient Data Vitals - Most Recent: Last Vital Signs Temp 36.6 C 09/28/18 07:20 Pulse 55 L 09/28/18 07:20 Resp 16 09/28/18 07:20 BP 127/67 09/28/18 07:20 Pulse Ox 98 09/28/18 07:20 Med Orders - Current: Current Medications Discontinued Medications Hydromorphone HCl (Dilaudid) 1 mg IVPUSH ONETIME ONE Stop: 09/27/18 03:54 Last Admin: 09/27/18 04:16 Dose: 1 mg Hydromorphone HCl (Dilaudid) 0.5 mg IVPUSH Q3H PRN PRN Reason: Pain Last Admin: 09/27/18 12:50 Dose: 0.5 mg Sodium Chloride (Normal Saline) 1,000 mls @ 999 mls/hr IV STAT ONE Stop: 09/27/18 03:47 Last Admin: 09/27/18 03:04 Dose: 999 mls/hr Sodium Chloride (Normal Saline) Confirm Administered Dose 20 mls @ as directed .ROUTE .STK-MED ONE Stop: 09/27/18 02:59 Last Admin: 09/27/18 03:15 Dose: 1 mls/hr Sodium Chloride (Normal Saline) 1,000 mls @ 150 mls/hr IV ASDIRECTED CYNDI Last Admin: 09/27/18 04:15 Dose: 150 mls/hr Sodium Chloride (Normal Saline) 1,000 mls @ 999 mls/hr IV .Bolus ONE Stop: 09/27/18 06:50 Last Admin: 09/27/18 05:58 Dose: 999 mls/hr Sodium Chloride (Normal Saline) 1,000 mls @ 200 mls/hr IV ASDIRECTED CYNDI Sodium Chloride (Normal Saline) 1,000 mls @ 200 mls/hr IV ASDIRECTED CYNDI Last Admin: 09/28/18 08:55 Dose: 200 mls/hr Sodium Chloride (Normal Saline) 1,000 mls @ 999 mls/hr IV STAT ONE Stop: 09/27/18 10:59 Last Admin: 09/27/18 11:04 Dose: 999 mls/hr Morphine Sulfate (Morphine) 4 mg IVPUSH ONETIME ONE Stop: 09/27/18 02:48 Last Admin: 09/27/18 03:09 Dose: 4 mg Ondansetron HCl (Zofran) 4 mg IVPUSH ONETIME ONE Stop: 09/27/18 02:48 Last Admin: 09/27/18 03:06 Dose: 4 mg Ondansetron HCl (Zofran) 4 mg IVPUSH Q4H PRN PRN Reason: Nausea Last Admin: 09/27/18 19:37 Dose: 4 mg Pantoprazole Sodium (Protonix Iv) 80 mg IVPUSH .BOLUS ONE Stop: 09/27/18 02:48 Last Admin: 09/27/18 03:14 Dose: 80 mg Sodium Chloride (Saline Flush) 10 ml FLUSH ASDIRECTED PRN PRN Reason: Keep Vein Open Sodium Chloride (Saline Flush) 2.5 ml FLUSH ASDIRECTED PRN PRN Reason: Keep Vein Open - Free Text/Narrative Note: I have seen and evaluated the patient. I have discussed findings with resident. I agree with the assessment and plan outlined in the following resident's note.
== END 2018-09-28 11:50 | disposition home or self-care (01) ==
LOC: MW.ED 02:28 → MW.MS 03:57
PROVIDERS: ADMIT Internal Medicine; ATTEND Internal Medicine
DX: K85.90 Acute pancreatitis without necrosis or infection, unspecified (principal); F17.200 Nicotine dependence, unspecified, uncomplicated; L40.9 Psoriasis, unspecified; R73.09 Other abnormal glucose; Z79.899 Other long term (current) drug therapy
CPT/HCPCS: 36415; 80048; 80053; 80061; 82150; 83036; 83690; 85025; 96361; 96374; 96375; 96376; 99284; C9113; G0378; J1170; J2270; J2405; J7040

== ENCOUNTER 2018-09-28 12:59 | Observation (INO) | payer BC ==
[2018-09-28] MEDS ORDERED: Morphine 2 MG/ML Syringe IVPUSH PRN (13:36)
[2018-09-28] MEDS: Sodium Chloride 0.9% 1,000 ML IV SCH ×2 (14:03→19:30)
[2018-09-28] MEDS ORDERED: Sodium Chloride 0.9% 1,000 ML IV SCH ×2 (15:00→15:45)
--- NOTE | 2018-09-28 15:01 | PCM.HP ---
H&P History of Present Illness - General Date of Service: 09/28/18 Admit Problem/Dx: Admission Diagnosis/Problem Admission Diagnosis/Problem Pancreatitis Source of Information: Patient History Limitations: Reports: No Limitations - History of Present Illness Initial Comments - Free Text/Narative: 28M with a history of pancreatitis who was discharged earlier today due to resolution of symptoms. Patient tells me that once discharged and on his way home, his symptoms abruptly started again. He endorses epigastric abdominal pain with radiation to the back. No further nausea or vomiting. - Related Data Allergies/Adverse Reactions: Allergies Allergy/AdvReac Type Severity Reaction Status Date / Time No Known Allergies Allergy Verified 09/27/18 02:41 Home Medications: Home Meds Folic Acid 1 mg PO DAILY 09/26/18 [History] Methotrexate 4 tab PO WEEKLY 09/26/18 [History] traMADol [Ultram] 50 mg PO Q4H PRN #20 tab 09/26/18 [Rx] Past Medical History - Past Health History Medical/Surgical History: Denies Medical/Surgical History Gastrointestinal History: Reports: Pancreatitis Psychiatric History: Reports: PTSD Dermatologic History: Reports: Eczema, Other (See Below) Other Dermatologic History: Psoriasis - Infectious Disease History Infectious Disease History: Reports: None - Past Surgical History GI Surgical History: Reports: None Social & Family History - Family History Family Medical History: Noncontributory - Tobacco Use Smoking Status *Q: Current Some Day Smoker Years of Tobacco use: 10 Packs/Tins Daily: 0.4 Used Tobacco, but Quit: No Second Hand Smoke Exposure: Yes - Caffeine Use Caffeine Use: Reports: Coffee - Recreational Drug Use Recreational Drug Use: No H&P Review of Systems - Review of Systems: Review Of Systems: ROS reveals no pertinent complaints other than HPI. Exam - Exam Exam: See Below - Vital Signs Weight: 90.889 kg - Exam General: Alert, Oriented, 4 HEENT: PERRLA, Hearing Intact, Mucosa Moist & [place], Nares Patent, Normal Nasal Septum, Posterior Pharynx Clear, Conjunctiva Clear, EOMI, EACs Clear, TMs Clear Neck: Supple, Trachea Midline, 2 Lungs: Clear to Auscultation, Normal Respiratory Effort Cardiovascular: Regular Rate, Regular Rhythm GI/Abdominal Exam: Normal Bowel Sounds, No Organomegaly, No Distention, Other ( epigastric tenderness) Peripheral Pulses: 2+: Dorsalis Pedis (L), Dorsalis Pedis (R) Skin: Warm, Dry, Intact DTR: 2+: Achilles (L), Achilles (R) Psychiatric: Alert, Normal Affect, Normal Mood Problem List Initiated/Reviewed/Updated: Yes Orders Last 24hrs: Active Orders 24 hr Category Date Time Status Patient Status [ADT] Routine ADT 09/28/18 14:53 Ordered Oxygen Therapy [RC] PRN Care 09/28/18 14:53 Ordered Up ad Olga Lidia [RC] ASDIRECTED Care 09/28/18 14:53 Ordered VTE/DVT Education [RC] PER UNIT ROUTINE Care 09/28/18 14:53 Ordered Vital Signs [RC] Q4H Care 09/28/18 14:53 Ordered NPO [Nothing Per Oral Diet] [DIET] Diet 09/28/18 Dinner Active Morphine Med 09/28/18 13:36 Active 2 mg IVPUSH Q2H PRN Sodium Chloride 0.9% [Normal Saline] 1,000 ml Med 09/28/18 13:45 Active IV ASDIRECTED Sodium Chloride 0.9% [Normal Saline] 1,000 ml Med 09/28/18 15:00 Ordered IV BOLUS Resuscitation Status Routine Resus Stat 09/28/18 14:53 Ordered Medication Orders Sodium Chloride (Normal Saline) 1,000 mls @ 200 mls/hr IV ASDIRECTED CYNDI Last Admin: 09/28/18 14:03 Dose: 200 mls/hr Sodium Chloride (Normal Saline) 1,000 mls @ 999 mls/hr IV [facility]OLUS [facility] Morphine Sulfate (Morphine) 2 mg IVPUSH Q2H PRN PRN Reason: Pain (moderate 4-6) Last Admin: 09/28/18 14:04 Dose: 2 mg Assessment/Plan Comment:: Assessment: #1. Acute pancreatitis Plan: #1. Admit for observation. Vitals per floor. NPO #2. IVNS 1L bolus #3. IVNS 200ml/h afterwards #4. Zofran 4mg IV q4h PRN nausea #5. IV Morphine 2mg q2h PRN pain #5. CMP tomorrow AM. If symptoms acutely worsen can consider repeating lipase.
[2018-09-28] MEDS ORDERED: Ondansetron 4 MG/2 ML SDV IVPUSH PRN (15:02)
[2018-09-28] MEDS ORDERED: HYDROmorphone 1 MG/ML Syringe IVPUSH PRN ×2 (17:57→19:59)
[2018-09-29] MEDS: Sodium Chloride 0.9% 1,000 ML IV SCH ×4 (00:15→15:03)
[2018-09-29 10:45] LABS: CHLORIDE,CL 106 mmol/L (98-107); SODIUM,NA 141 mmol/L (136-148)
--- NOTE | 2018-09-29 12:17 | PCM.PN ---
- General Info Date of Service: 09/29/18 Subjective Update: Feels better. Hasn't needed pain control since last night. No nausea, fever. - Review of Systems General: Reports: Other (see hpi) - Patient Data Vitals - Most Recent: Last Vital Signs Temp 36.6 C 09/29/18 11:59 Pulse 53 L 09/29/18 11:59 Resp 16 09/29/18 11:59 BP 116/58 L 09/29/18 11:59 Pulse Ox 94 L 09/29/18 11:59 Weight - Most Recent: 90.889 kg I&O - Last 24 Hours: Intake & Output 09/28/18 09/29/18 09/29/18 22:59 06:59 14:59 Intake Total 1839 1799 Output Total 500 1975 Balance 1339 -176 Lab Results Last 24 Hours: Laboratory Results - last 24 hr 09/29/18 Range/Units 09:50 Sodium 141 (136-148) mmol/L Potassium 3.9 (3.5-5.1) mmol/L Chloride 106 (98-107) mmol/L Carbon Dioxide 21.6 (21.0-32.0) mmol/L BUN 7 (7.0-18.0) mg/dL Creatinine 0.9 (0.8-1.3) mg/dL Est Cr Clr Drug Dosing 109.29 mL/min Estimated GFR (MDRD) > 60.0 ml/min Glucose 86 (74-106) mg/dL Calcium 8.7 (8.5-10.1) mg/dL Total Bilirubin 0.7 (0.2-1.0) mg/dL AST 12 L (15-37) IU/L ALT 31 (14-63) IU/L Alkaline Phosphatase 68 (46-116) U/L Total Protein 6.8 (6.4-8.2) g/dL Albumin 3.5 (3.4-5.0) g/dL Globulin 3.3 (2.6-4.0) g/dL Albumin/Globulin Ratio 1.1 (0.9-1.6) Med Orders - Current: Current Medications Sodium Chloride (Normal Saline) 1,000 mls @ 200 mls/hr IV ASDIRECTED CYNDI Last Admin: 09/29/18 10:02 Dose: 200 mls/hr Sodium Chloride (Normal Saline) 1,000 mls @ 999 mls/hr IV BOLUS CYNDI Last Admin: 09/28/18 15:47 Dose: 999 mls/hr Ondansetron HCl (Zofran) 4 mg IVPUSH Q4H PRN PRN Reason: Nausea Last Admin: 09/28/18 21:00 Dose: 4 mg Discontinued Medications Hydromorphone HCl (Dilaudid) 0.5 mg IVPUSH Q3H PRN PRN Reason: Pain (severe 7-10) Last Admin: 09/28/18 18:19 Dose: 0.5 mg Hydromorphone HCl (Dilaudid) 1 mg IVPUSH Q3H PRN PRN Reason: Pain Last Admin: 09/28/18 20:05 Dose: 1 mg Sodium Chloride (Normal Saline) 1,000 mls @ 999 mls/hr IV BOLUS CYNDI Morphine Sulfate (Morphine) 2 mg IVPUSH Q2H PRN PRN Reason: Pain (moderate 4-6) Last Admin: 09/28/18 14:04 Dose: 2 mg - Exam General: Alert, Oriented HEENT: Pupils Equal, Pupils Reactive, EOMI, Mucous Membr. Moist/[place] Lungs: Clear to Auscultation, Normal Respiratory Effort Cardiovascular: Regular Rate, Regular Rhythm GI/Abdominal Exam: Normal Bowel Sounds, Soft, Non-Tender, No Organomegaly, No Distention, No Abnormal Bruit Extremities: Normal Inspection, Normal Range of Motion, Non-Tender, No Pedal Edema, Normal Capillary Refill - Problem List Review Problem List Initiated/Reviewed/Updated: Yes - My Orders Last 24 Hours: My Active Orders 09/28/18 13:45 Sodium Chloride 0.9% [Normal Saline] 1,000 ml IV ASDIRECTED 09/28/18 14:53 Patient Status [ADT] Routine Oxygen Therapy [RC] PRN Up ad Olga Lidia [RC] ASDIRECTED VTE/DVT Education [RC] PER UNIT ROUTINE Vital Signs [RC] Q4H Resuscitation Status Routine 09/28/18 15:02 Ondansetron [Zofran] 4 mg IVPUSH Q4H PRN 09/28/18 15:45 Sodium Chloride 0.9% [Normal Saline] 1,000 ml IV BOLUS 09/29/18 Breakfast Clear Liquid Diet [DIET] - Plan Plan:: Assessment: #1. Acute pancreatitis Plan: #1. Advance to clear liquid diet. #2. If he's able to tolerate this, consider discharge later today. Will likely to observe longer.
--- NOTE | 2018-09-29 17:04 | PCM.DCSUM1 ---
Discharge Summary - Hospital Course Free Text/Narrative:: Admission date: 09/28/2018 Discharge date: 09/29/2018 Admission dx: Pancreatitis Hospital course: Patient was re-admitted for acute pancreatitis shortly after discharge secondary to return of symptoms. Patient was kept NPO and pain was controlled. Next day, patient tolerated full liquid diet with no issues. No need for pain med. He was discharged home and advised to continue a liquid diet and avoid fatty foods over the next few days. He is to f/u with his PCP. - Discharge Data Discharge Date: 09/29/18 Discharge Disposition: Home, Self-Care 01 Condition: Good - Patient Instructions Diet: Full Liquid Diet Activity: As Tolerated Notify Provider of: Fever, Increased Pain, Nausea and/or Vomiting - Discharge Plan Home Medications: Home Meds Folic Acid 1 mg PO DAILY 09/26/18 [History] Methotrexate 4 tab PO WEEKLY 09/26/18 [History] traMADol [Ultram] 50 mg PO Q4H PRN #20 tab 09/26/18 [Rx] Patient Handouts: Acute Pancreatitis, [id number] Referrals: Mohsen Loja MD [Physician] - 10/07/18 12:30 pm - Discharge Summary/Plan Comment DC Time >30 min.: No - Patient Data Vitals - Most Recent: Last Vital Signs Temp 36.3 C 09/29/18 16:00 Pulse 63 09/29/18 16:00 Resp 16 09/29/18 16:00 BP 126/80 09/29/18 16:00 Pulse Ox 96 09/29/18 16:00 Weight - Most Recent: 90.889 kg I&O - Last 24 hours: Intake & Output 09/29/18 09/29/18 09/29/18 06:59 14:59 22:59 Intake Total 1799 3078 Output Total 1975 2000 Balance -176 1078 Lab Results - Last 24 hrs: Laboratory Results - last 24 hr 09/29/18 Range/Units 09:50 Sodium 141 (136-148) mmol/L Potassium 3.9 (3.5-5.1) mmol/L Chloride 106 (98-107) mmol/L Carbon Dioxide 21.6 (21.0-32.0) mmol/L BUN 7 (7.0-18.0) mg/dL Creatinine 0.9 (0.8-1.3) mg/dL Est Cr Clr Drug Dosing 109.29 mL/min Estimated GFR (MDRD) > 60.0 ml/min Glucose 86 (74-106) mg/dL Calcium 8.7 (8.5-10.1) mg/dL Total Bilirubin 0.7 (0.2-1.0) mg/dL AST 12 L (15-37) IU/L ALT 31 (14-63) IU/L Alkaline Phosphatase 68 (46-116) U/L Total Protein 6.8 (6.4-8.2) g/dL Albumin 3.5 (3.4-5.0) g/dL Globulin 3.3 (2.6-4.0) g/dL Albumin/Globulin Ratio 1.1 (0.9-1.6) Med Orders - Current: Current Medications Sodium Chloride (Normal Saline) 1,000 mls @ 200 mls/hr IV ASDIRECTED CYNDI Last Admin: 09/29/18 15:03 Dose: 200 mls/hr Sodium Chloride (Normal Saline) 1,000 mls @ 999 mls/hr IV BOLUS [facility] Last Admin: 09/28/18 15:47 Dose: 999 mls/hr Ondansetron HCl (Zofran) 4 mg IVPUSH Q4H PRN PRN Reason: Nausea Last Admin: 09/28/18 21:00 Dose: 4 mg Discontinued Medications Hydromorphone HCl (Dilaudid) 0.5 mg IVPUSH Q3H PRN PRN Reason: Pain (severe 7-10) Last Admin: 09/28/18 18:19 Dose: 0.5 mg Hydromorphone HCl (Dilaudid) 1 mg IVPUSH Q3H PRN PRN Reason: Pain Last Admin: 09/28/18 20:05 Dose: 1 mg Sodium Chloride (Normal Saline) 1,000 mls @ 999 mls/hr IV BOLUS [facility] Morphine Sulfate (Morphine) 2 mg IVPUSH Q2H PRN PRN Reason: Pain (moderate 4-6) Last Admin: 09/28/18 14:04 Dose: 2 mg
== END 2018-09-29 17:30 | disposition home or self-care (01) ==
LOC: MW.MS 12:59
PROVIDERS: ADMIT Internal Medicine; ATTEND Internal Medicine
DX: K85.90 Acute pancreatitis without necrosis or infection, unspecified (principal); F17.200 Nicotine dependence, unspecified, uncomplicated; L40.9 Psoriasis, unspecified; Z79.899 Other long term (current) drug therapy; R10.9 Unspecified abdominal pain; R73.09 Other abnormal glucose
CPT/HCPCS: 36415; 80048; 80053; 80061; 82150; 83036; 83690; 85025; 96361; 96374; 96375; 96376; 99284-25; C9113; G0378; J1170; J2270; J2405; J7040

== ENCOUNTER 2018-10-20 17:23 | Emergency (ER) | payer BC ==
--- NOTE | 2018-10-20 17:59 | EDM.PDOC ---
ED HPI GENERAL MEDICAL PROBLEM - General Chief Complaint: Abdominal Pain Stated Complaint: POSSIBLE INFECTION Time Seen by Provider: 10/20/18 17:34 Source of Information: Reports: Patient History Limitations: Reports: No Limitations - History of Present Illness INITIAL COMMENTS - FREE TEXT/NARRATIVE: Presents reporting right upper quadrant pain, white stools, yellow eyes, dark urine, itchy skin, mild shortness of breath, tiredness. The patient states that he had the same symptoms about 3 weeks ago--he was diagnosed with pancreatitis. He was admitted for a couple of days then discharged. His symptoms have not really ever gone away. upper abdomen Pain Score (Numeric/FACES): 2 - Related Data Allergies Allergy/AdvReac Type Severity Reaction Status Date / Time No Known Allergies Allergy Verified 10/20/18 17:36 Home Meds: Home Meds traMADol [Ultram] 50 mg PO Q4H PRN #20 tab 09/26/18 [Rx] Past Medical History - Past Health History Medical/Surgical History: Denies Medical/Surgical History HEENT History: Reports: Other (See Below) Other HEENT History: Hearing Loss R ear Respiratory History: Reports: Sleep Apnea Gastrointestinal History: Reports: GERD, Pancreatitis Neurological History: Reports: Other (See Below) Other Neuro History: Mild TBI Psychiatric History: Reports: PTSD Dermatologic History: Reports: Eczema, Other (See Below) Other Dermatologic History: Psoriasis - Infectious Disease History Infectious Disease History: Reports: None - Past Surgical History GI Surgical History: Reports: None Social & Family History - Family History Family Medical History: Noncontributory - Tobacco Use Smoking Status *Q: Never Smoker - Caffeine Use Caffeine Use: Reports: Coffee - Recreational Drug Use Recreational Drug Use: No ED ROS GENERAL - Review of Systems Review Of Systems: ROS reveals no pertinent complaints other than HPI. Constitutional: Denies: Fever ED EXAM, GI/ABD - Physical Exam Exam: See Below Exam Limited By: No Limitations General Appearance: Alert, No Apparent Distress Eyes: Bilateral: Normal Appearance (No icterus) Ears: Normal External Exam Nose: Normal Inspection Throat/Mouth: Normal Inspection Head: Atraumatic, Normocephalic Neck: Normal Inspection Respiratory/Chest: No Respiratory Distress, Lungs Clear, Normal Breath Sounds Cardiovascular: Normal Peripheral Pulses, Regular Rate, Rhythm, No Murmur GI/Abdominal Exam: Normal Bowel Sounds, Soft, Non-Tender, No Distention Back Exam: Normal Inspection Extremities: Normal Inspection Neurological: Alert, Oriented Psychiatric: Normal Affect, Normal Mood Skin Exam: Warm, Dry, Intact, Normal Color, No Rash Lymphatic: No Adenopathy Course - Vital Signs Last Recorded V/S: Last Vital Signs Temp 36.2 C 10/20/18 17:33 Pulse 93 10/20/18 17:33 Resp 15 10/20/18 17:33 BP 118/87 10/20/18 17:33 Pulse Ox 96 10/20/18 17:33 - Orders/Labs/Meds Labs: Laboratory Tests 10/20/18 10/20/18 10/20/18 Range/Units 18:01 18:06 18:06 WBC 10.47 (4.0-11.0) K/uL RBC 5.10 (4.50-5.90) M/uL Hgb 15.4 (13.0-17.0) g/dL Hct 45.5 (38.0-50.0) % MCV 89.2 (80.0-98.0) fL MCH 30.2 (27.0-32.0) pg MCHC 33.8 (31.0-37.0) g/dL RDW Std Deviation 46.9 (28.0-62.0) fl RDW Coeff of Philip 14 (11.0-15.0) % Plt Count 239 (150-400) K/uL MPV 10.90 (7.40-12.00) fL Add Manual Diff YES Neutrophils % (Manual) 67 (48.0-80.0) % Band Neutrophils % 4 % Lymphocytes % (Manual) 17 (16.0-40.0) % Monocytes % (Manual) 10 (0.0-15.0) % Eosinophils % (Manual) 2 (0.0-7.0) % Nucleated RBC % 0.0 /100WBC Absolute Seg Neuts 7.0 H (1.4-5.7) Band Neutrophils # 0.4 Lymphocytes # (Manual) 1.8 (0.6-2.4) Monocytes # (Manual) 1.0 H (0.0-0.8) Eosinophils # (Manual) 0.2 (0.0-0.7) Nucleated RBCs # 0 K/uL Sodium 138 (136-148) mmol/L Potassium 4.1 (3.5-5.1) mmol/L Chloride 104 (98-107) mmol/L Carbon Dioxide 21.0 (21.0-32.0) mmol/L BUN 16 (7.0-18.0) mg/dL Creatinine 1.0 (0.8-1.3) mg/dL Est Cr Clr Drug Dosing 98.36 mL/min Estimated GFR (MDRD) > 60.0 ml/min Glucose 108 H (74-106) mg/dL Calcium 9.3 (8.5-10.1) mg/dL Total Bilirubin 1.2 H (0.2-1.0) mg/dL AST 172 H (15-37) IU/L ALT 793 H (14-63) IU/L Alkaline Phosphatase 293 H (46-116) U/L Total Protein 8.0 (6.4-8.2) g/dL Albumin 4.2 (3.4-5.0) g/dL Globulin 3.8 (2.6-4.0) g/dL Albumin/Globulin Ratio 1.1 (0.9-1.6) Amylase 40 (25-115) U/L Lipase 370 (73-393) U/L Urine Color ORANGE Urine Appearance CLEAR Urine pH 5.5 (5.0-8.0) Ur Specific [place] 1.025 (1.001-1.035) Urine Protein NEGATIVE (NEGATIVE) mg/dL Urine Glucose (UA) NEGATIVE (NEGATIVE) mg/dL Urine Ketones TRACE H (NEGATIVE) mg/dL Urine Occult Blood NEGATIVE (NEGATIVE) Urine Nitrite NEGATIVE (NEGATIVE) Urine Bilirubin SMALL H (NEGATIVE) Urine Ictotest NEGATIVE Urine Urobilinogen 1.0 (<2.0) EU/dL Ur Leukocyte Esterase NEGATIVE (NEGATIVE) - Re-Assessments/Exams Free Text/Narrative Re-Assessment/Exam: 10/20/18 20:[address] Woodard. Departure - Departure Time of Disposition: 20:03 Disposition: Home, Self-Care 01 Condition: Good Clinical Impression: Elevated LFTs - Discharge Information Referrals: Mohsen Loja MD [Primary Care Provider] - Forms: ED Department Discharge Additional Instructions: 1. Drink plenty of fluids 2. Richard appointment with your primary provider tomorrow. He will evaluate your elevated LFTs and refer if indicated
[2018-10-20 18:37] LABS: CHLORIDE,CL 104 mmol/L (98-107); SODIUM,NA 138 mmol/L (136-148)
== END 2018-10-20 20:15 | disposition home or self-care (01) ==
LOC: MW.ED 17:23
DX: R94.5 Abnormal results of liver function studies (principal)
CPT/HCPCS: 36415; 80053; 81003; 82150; 83690; 85025; 99283

== ENCOUNTER 2018-10-24 03:41 | Emergency (ER) | payer SELFPAY ==
--- NOTE | 2018-10-24 03:56 | EDM.PDOC ---
ED HPI GENERAL MEDICAL PROBLEM - General Chief Complaint: Abdominal Pain Stated Complaint: STOMACH PAIN Time Seen by Provider: 10/24/18 03:52 - History of Present Illness INITIAL COMMENTS - FREE TEXT/NARRATIVE: HISTORY AND PHYSICAL: History of present illness: The patient is a 28-year-old male who has had multiple ER visits and 2 admissions previously for abdominal pain and pancreatitis and represented with abdominal pain that started at 9 PM, approximately 7 hours ago associated with 2 episodes of vomiting. The patient was seen here initially on September 26 and had abdominal pain and had a full workup including labs and a CAT scan of the abdomen and pelvis. At that time his lipase was 933. He was given medications and felt improved and was discharged. Return the next day on September 27 and I personally saw him and admitted him as his pain could not be improved despite his lipase reducing and having normal liver enzymes. The patient was observed overnight and kept nothing by mouth IV fluids and given medications and improved and was discharged home. The patient was subsequently readmitted several hours after being discharged because he stated that the pain returned and he spent another night here in the hospital with bowel rest and medications. He again improved and was discharged. The patient was seen in the emergency department just 3 days ago on October 20 with complaints of right upper quadrant pain and had blood work done at that time which showed a bilirubin of 1.2 a slight elevation in his liver enzymes and a lipase of 370. He complained at that time of itching concerned about his liver and his pancreas and overall malaise. He was discharged home. Patient was seen at [facility] for his hospital follow-up on October [address] Darden, although he was scheduled with Dr. Loja he was busy. On that follow-up visit he was doing better and no further workup was scheduled. The patient did see Dr. Cabrera yesterday for an ER follow-up subsequent to his visit here on October 20 and according to the at bedside he had multiple vials of blood drawn and Dr. serrano does he said that his liver enzymes were elevated but the lipase was not elevated and she wanted to get him scheduled to be seen by GI. On yesterday's visit she did not feel that he needed to be admitted to the hospital for these lab tests but the does not have copies of those results nor are we able to access them. The patient said he was given tramadol for pain and he has used that and the pain overall has been reasonably well controlled and at its baseline until this evening at 9: 00 when he suddenly felt like the pain increased and it is located in his epigastric area and radiates to the right and left. He's had 2 episodes of vomiting which was food only and not black or bloody and bowel movements have not been black or bloody or diarrhea weight are pasty. He doesn't have a fever chills chest pain or shortness of breath and no urinary complaints. He says the pain in his upper abdomen and epigastrium radiates to his back. The patient says he has not taken his methotrexate as he was advised to stop that on his last admission as it might of been a trigger for the pancreatitis. He does have a history of psoriasis. He denies that he has been drinking any alcohol in the past is reported to me that he is only an occasional social drinker. He only took the one tramadol this evening to try to help with the pain and he said he vomited up any tried no other medications [id number]. The patient has not been eating very much in the last few days according to the and he did have mac & cheese for dinner The also reports that yesterday at [facility] they mckenna extra blood for test that they were going to run on Friday and she is not sure what they were. According to her and the patient his lipase was not only elevated but the LFTs were. The is also telling me that he has intermittently looked jaundiced and had white pasty stools which comes and goes since his last admission. Review of systems: As per history of present illness and below otherwise all systems reviewed and negative. Past medical history: As per history of present illness and as reviewed below otherwise noncontributory. Surgical history: As per history of present illness and as reviewed below otherwise noncontributory. Social history: No reported history of drug or alcohol abuse. Family history: As per history of present illness and as reviewed below otherwise noncontributory. Physical exam: General: Well-developed well-nourished male who immigrated easily into the ED without distress and vital signs were noted by me. He is nontoxic appearing HEENT: Atraumatic, normocephalic, pupils reactive, negative for conjunctival pallor or scleral icterus, mucous membranes moist, throat clear, neck supple, nontender, trachea midline. Lungs: Clear to auscultation, breath sounds equal bilaterally, chest nontender. Heart: S1S2, regular rate and rhythm no overt murmurs Abdomen: Soft, nondistended, mild epigastric tenderness on deep palpation as well as throughout the entire upper abdomen without rebound or guarding and bowel sounds are slightly hypoactive. There is no tympany on percussion. Negative for masses or hepatosplenomegaly. Negative for costovertebral tenderness. Pelvis: Stable nontender. Genitourinary: Deferred. Rectal: Deferred. Extremities: Atraumatic, negative for cords or calf pain. Neurovascular unremarkable. Neuro: Awake, alert, oriented. Cranial nerves II through XII unremarkable. Cerebellum unremarkable. Motor and sensory unremarkable throughout. Exam nonfocal. Skin: Normal turgor no evidence of any overt rashes or lesions and no overt icterus or sallow appearance Diagnostics: CBC CMP amylase lipase alcohol level INR H pylori UA with reflex CT scan of the abdomen and pelvis Therapeutics: IV fluids Zofran and Protonix morphine, Dilaudid Patient's labs from today were compared to prior visits and his lipase is significantly elevated at 14,935 and his bilirubin has also bumped to 1.6 as have his liver enzymes. I will see if the nursing plant operator/shift supervisor can access [facility]'s database to see what his blood work from yesterday showed. The patient's labs from [facility] performed yesterday October 23 were able to be accessed and they revealed a calcium of 9.5 bilirubin of 1.1 AST of 137 ALT of 576 and alkaline phosphatase of 270 with a PT of 9.3 and an INR of 0.9. Electrolytes BUN and creatinine were all within normal limits. The patient also had a hepatitis profile drawn and sent from the clinic and results are not available in the computer. According to our review the patient did not have a lipase performed that we can find in the clinic yesterday. According to my review of all the blood work the patient has had throughout September and October here at our hospital he has never had an elevated INR and he has never had elevated liver enzymes until just recently on his ED visit on October 20. Those numbers again bumped with his labs performed yesterday on October 23. He only had the elevated lipase on his first ED visit September 26 as well as on his admission on September 27. That number was only as high as the 900s. [facility] and [facility] in [place] were both contacted but they do not have GI capability for ERCP 0730: Case was discussed with the hospitalist Dr. Medrano at [facility] and he accepts the patient for transfer and they do have GI capability for ERCP as needed. I will arrange for ground transport. The patient his maintenance fluids and I will discuss all of these findings and care plan with the patient and at bedside Impression: Recurrent upper abdominal pain, acute choleducolithiasis Definitive disposition and diagnosis as appropriate pending reevaluation and review of above. gastric region Pain Score (Numeric/FACES): 10 - Related Data Allergies Allergy/AdvReac Type Severity Reaction Status Date / Time No Known Allergies Allergy Verified 10/24/18 03:45 Home Meds: Home Meds traMADol [Ultram] 50 mg PO Q4H PRN #20 tab 09/26/18 [Rx] Past Medical History - Past Health History Medical/Surgical History: Denies Medical/Surgical History HEENT History: Reports: Other (See Below) Other HEENT History: Hearing Loss R ear Respiratory History: Reports: Sleep Apnea Gastrointestinal History: Reports: GERD, Pancreatitis Neurological History: Reports: Other (See Below) Other Neuro History: Mild TBI Psychiatric History: Reports: PTSD Dermatologic History: Reports: Eczema, Other (See Below) Other Dermatologic History: Psoriasis - Infectious Disease History Infectious Disease History: Reports: None - Past Surgical History GI Surgical History: Reports: None Social & Family History - Family History Family Medical History: Noncontributory - Tobacco Use Smoking Status *Q: Never Smoker - Caffeine Use Caffeine Use: Reports: Coffee - Recreational Drug Use Recreational Drug Use: No ED ROS GENERAL - Review of Systems Review Of Systems: ROS reveals no pertinent complaints other than HPI. ED EXAM, GENERAL - Physical Exam Exam: See Below (See dictation) Course - Vital Signs Last Recorded V/S: Last Vital Signs Temp 35.7 C 10/24/18 03:45 Pulse 50 L 10/24/18 05:26 Resp 18 10/24/18 05:26 BP 126/70 10/24/18 05:26 Pulse Ox 94 L 10/24/18 05:26 - Orders/Labs/Meds Orders: Active Orders 24 hr Category Date Time Status Sodium Chloride 0.9% [Normal Saline] 1,000 ml Med 10/24/18 05:45 Active IV ASDIRECTED Sodium Chloride 0.9% [Saline Flush] Med 10/24/18 04:02 Active 10 ml FLUSH ASDIRECTED PRN Sodium Chloride 0.9% [Saline Flush] Med 10/24/18 04:02 Active 2.5 ml FLUSH ASDIRECTED PRN Saline Lock Insert [OM.PC] Stat Oth 10/24/18 04:01 Ordered Medication Orders Sodium Chloride (Normal Saline) 1,000 mls @ 150 mls/hr IV ASDIRECTED CYNDI Last Admin: 10/24/18 05:39 Dose: 150 mls/hr Sodium Chloride (Saline Flush) 10 ml FLUSH ASDIRECTED PRN PRN Reason: Keep Vein Open Sodium Chloride (Saline Flush) 2.5 ml FLUSH ASDIRECTED PRN PRN Reason: Keep Vein Open Labs: Laboratory Tests 10/24/18 10/24/18 10/24/18 Range/Units 03:50 03:50 03:50 WBC 8.98 (4.0-11.0) K/uL RBC 5.04 (4.50-5.90) M/uL Hgb 15.2 (13.0-17.0) g/dL Hct 45.0 (38.0-50.0) % MCV 89.3 (80.0-98.0) fL MCH 30.2 (27.0-32.0) pg MCHC 33.8 (31.0-37.0) g/dL RDW Std Deviation 47.0 (28.0-62.0) fl RDW Coeff of Philip 14 (11.0-15.0) % Plt Count 225 (150-400) K/uL MPV 10.90 (7.40-12.00) fL Neut % (Auto) 50.6 (48.0-80.0) % Lymph % (Auto) 32.7 (16.0-40.0) % [place] % (Auto) 14.1 (0.0-15.0) % Eos % (Auto) 1.8 (0.0-7.0) % Baso % (Auto) 0.8 (0.0-1.5) % Neut # (Auto) 4.5 (1.4-5.7) K/uL Lymph # (Auto) 2.9 H (0.6-2.4) K/uL [place] # (Auto) 1.3 H (0.0-0.8) K/uL Eos # (Auto) 0.2 (0.0-0.7) K/uL Baso # (Auto) 0.1 (0.0-0.1) K/uL Nucleated RBC % 0.0 /100WBC Nucleated RBCs # 0 K/uL INR 0.93 Sodium 139 (136-148) mmol/L Potassium 3.9 (3.5-5.1) mmol/L Chloride 105 (98-107) mmol/L Carbon Dioxide 24.1 (21.0-32.0) mmol/L BUN 13 (7.0-18.0) mg/dL Creatinine 0.9 (0.8-1.3) mg/dL Est Cr Clr Drug Dosing 109.29 mL/min Estimated GFR (MDRD) > 60.0 ml/min Glucose 122 H (74-106) mg/dL Calcium 9.0 (8.5-10.1) mg/dL Total Bilirubin 1.6 H (0.2-1.0) mg/dL AST 243 H (15-37) IU/L ALT 776 H (14-63) IU/L Alkaline Phosphatase 325 H (46-116) U/L Total Protein 7.4 (6.4-8.2) g/dL Albumin 3.8 (3.4-5.0) g/dL Globulin 3.6 (2.6-4.0) g/dL Albumin/Globulin Ratio 1.1 (0.9-1.6) Amylase 734 H (25-115) U/L Lipase 29849 H (73-393) U/L Urine Color Urine Appearance Urine pH (5.0-8.0) Ur Specific [place] (1.001-1.035) Urine Protein (NEGATIVE) mg/dL Urine Glucose (UA) (NEGATIVE) mg/dL Urine Ketones (NEGATIVE) mg/dL Urine Occult Blood (NEGATIVE) Urine Nitrite (NEGATIVE) Urine Bilirubin (NEGATIVE) Urine Urobilinogen (<2.0) EU/dL Ur Leukocyte Esterase (NEGATIVE) Ethyl Alcohol < 3.0 mg/dL H. pylori IgG Antibody (NEG) 06/08/19 06/08/19 Range/Units 03:50 05:20 WBC (4.0-11.0) K/uL RBC (4.50-5.90) M/uL Hgb (13.0-17.0) g/dL Hct (38.0-50.0) % MCV (80.0-98.0) fL MCH (27.0-32.0) pg MCHC (31.0-37.0) g/dL RDW Std Deviation (28.0-62.0) fl RDW Coeff of Philip (11.0-15.0) % Plt Count (150-400) K/uL MPV (7.40-12.00) fL Neut % (Auto) (48.0-80.0) % Lymph % (Auto) (16.0-40.0) % [place] % (Auto) (0.0-15.0) % Eos % (Auto) (0.0-7.0) % Baso % (Auto) (0.0-1.5) % Neut # (Auto) (1.4-5.7) K/uL Lymph # (Auto) (0.6-2.4) K/uL [place] # (Auto) (0.0-0.8) K/uL Eos # (Auto) (0.0-0.7) K/uL Baso # (Auto) (0.0-0.1) K/uL Nucleated RBC % /100WBC Nucleated RBCs # K/uL INR Sodium (136-148) mmol/L Potassium (3.5-5.1) mmol/L Chloride (98-107) mmol/L Carbon Dioxide (21.0-32.0) mmol/L BUN (7.0-18.0) mg/dL Creatinine (0.8-1.3) mg/dL Est Cr Clr Drug Dosing mL/min Estimated GFR (MDRD) ml/min Glucose (74-106) mg/dL Calcium (8.5-10.1) mg/dL Total Bilirubin (0.2-1.0) mg/dL AST (15-37) IU/L ALT (14-63) IU/L Alkaline Phosphatase (46-116) U/L Total Protein (6.4-8.2) g/dL Albumin (3.4-5.0) g/dL Globulin (2.6-4.0) g/dL Albumin/Globulin Ratio (0.9-1.6) Amylase (25-115) U/L Lipase (73-393) U/L Urine Color DARK YELLOW Urine Appearance HAZY Urine pH 6.5 (5.0-8.0) Ur Specific [place] <= 1.005 (1.001-1.035) Urine Protein NEGATIVE (NEGATIVE) mg/dL Urine Glucose (UA) NEGATIVE (NEGATIVE) mg/dL Urine Ketones NEGATIVE (NEGATIVE) mg/dL Urine Occult Blood NEGATIVE (NEGATIVE) Urine Nitrite NEGATIVE (NEGATIVE) Urine Bilirubin NEGATIVE (NEGATIVE) Urine Urobilinogen 2.0 H (<2.0) EU/dL Ur Leukocyte Esterase NEGATIVE (NEGATIVE) Ethyl Alcohol mg/dL H. pylori IgG Antibody NEGATIVE (NEG) Meds: Medications Generic Name Dose Route Start Last Admin Trade Name Freq PRN Reason Stop Dose Admin Sodium Chloride 1,000 mls @ 150 mls/hr 10/24/18 05:45 10/24/18 05:39 Normal Saline IV 150 mls/hr ASDIRECTED CYNDI Administration Sodium Chloride 10 ml 10/24/18 04:02 Saline Flush FLUSH ASDIRECTED PRN Keep Vein Open Sodium Chloride 2.5 ml 10/24/18 04:02 Saline Flush FLUSH ASDIRECTED PRN Keep Vein Open Discontinued Medications Generic Name Dose Route Start Last Admin Trade Name Freq PRN Reason Stop Dose Admin Hydromorphone HCl 1 mg 10/24/18 04:45 10/24/18 04:51 Dilaudid IVPUSH 10/24/18 04:46 1 mg ONETIME ONE Administration Hydromorphone HCl 1 mg 10/24/18 05:35 10/24/18 05:42 Dilaudid IVPUSH 10/24/18 05:36 1 mg ONETIME ONE Administration Sodium Chloride 1,000 mls @ 999 mls/hr 10/24/18 04:02 10/24/18 04:11 Normal Saline IV 10/24/18 05:02 999 mls/hr STAT ONE Administration Iopamidol 100 ml 10/24/18 04:56 10/24/18 05:16 Isovue-370 (76%) IVPUSH 10/24/18 04:57 100 ml ONETIME ONE Administration Morphine Sulfate 4 mg 10/24/18 04:02 10/24/18 04:11 Morphine IVPUSH 10/24/18 04:03 4 mg ONETIME ONE Administration Ondansetron HCl 4 mg 10/24/18 04:02 10/24/18 04:12 Zofran IVPUSH 10/24/18 04:03 4 mg ONETIME ONE Administration Pantoprazole Sodium 80 mg 10/24/18 04:02 10/24/18 04:12 Protonix Iv IVPUSH 10/24/18 04:03 80 mg .BOLUS ONE Administration Sodium Chloride 20 ml 10/24/18 04:04 10/24/18 04:12 Normal Saline FLUSH 10/24/18 04:05 20 ml NOW STA Administration Departure - Departure Time of Disposition: 07:34 Disposition: DC/Tfer to Acute Hospital 02 Condition: Good Clinical Impression: Gall stone pancreatitis - Discharge Information Referrals: PCP,None [Primary Care Provider] - Forms: ED Department Discharge - My Orders Last 24 Hours: My Active Orders 10/24/18 04:01 Saline Lock Insert [OM.PC] Stat 10/24/18 04:02 Sodium Chloride 0.9% [Saline Flush] 10 ml FLUSH ASDIRECTED PRN Sodium Chloride 0.9% [Saline Flush] 2.5 ml FLUSH ASDIRECTED PRN 10/24/18 05:45 Sodium Chloride 0.9% [Normal Saline] 1,000 ml IV ASDIRECTED - Assessment/Plan Last 24 Hours: My Active Orders 10/24/18 04:01 Saline Lock Insert [OM.PC] Stat 10/24/18 04:02 Sodium Chloride 0.9% [Saline Flush] 10 ml FLUSH ASDIRECTED PRN Sodium Chloride 0.9% [Saline Flush] 2.5 ml FLUSH ASDIRECTED PRN 10/24/18 05:45 Sodium Chloride 0.9% [Normal Saline] 1,000 ml IV ASDIRECTED
[2018-10-24] MEDS ORDERED: Sodium Chloride 0.9% 1,000 ML IV ONE (04:02)
[2018-10-24] MEDS ORDERED: Ondansetron 4 MG/2 ML SDV IVPUSH ONE (04:02)
[2018-10-24] MEDS ORDERED: Sodium Chloride 0.9% 10 ML Syringe FLUSH PRN (04:02)
[2018-10-24] MEDS ORDERED: Morphine 2 MG/ML Syringe IVPUSH ONE (04:02)
[2018-10-24] MEDS ORDERED: Sodium Chloride 0.9% 2.5 ML Syringe FLUSH PRN (04:02)
[2018-10-24] MEDS ORDERED: Pantoprazole 40 MG Vial IVPUSH ONE (04:02)
[2018-10-24] MEDS ORDERED: Sodium Chloride 0.9% 20 ML SDV FLUSH STA (04:04)
[2018-10-24 04:24] LABS: CHLORIDE,CL 105 mmol/L (98-107); SODIUM,NA 139 mmol/L (136-148)
[2018-10-24] MEDS ORDERED: HYDROmorphone 1 MG/ML Syringe IVPUSH ONE ×2 (04:45→05:35)
[2018-10-24] MEDS ORDERED: Iopamidol 755 Mg/ML 100 ML Bottle IVPUSH ONE (04:56)
[2018-10-24] MEDS ORDERED: Sodium Chloride 0.9% 1,000 ML IV SCH (05:45)
--- NOTE | 2018-10-24 06:12 | CT ---
INDICATION: Abdominal pain with elevated liver and pancreatic enzymes. TECHNIQUE: CT abdomen and pelvis acquired with 100 cc Isovue 370 intravenous contrast. COMPARISON: Chest x-ray 09/26/2018 FINDINGS: Lower chest: Unremarkable. Liver: Unremarkable. Normal in size and attenuation. No masses. Gallbladder and bile ducts: No gallbladder wall thickening, however the common duct is not dilated measuring 11 millimeters within new abrupt transition at the level of the pancreatic head (203, 48). Pancreas: No focal lesion or significant inflammation. Pancreatic duct unremarkable. Spleen: Unremarkable. Normal in size. No masses. Adrenal glands: Unremarkable. No nodules. Kidneys: Symmetric enhancement without hydronephrosis. Low-density lesion, likely cyst redemonstrated in the lower pole of the right kidney measuring 2.0 centimeters. GI tract: The stomach is unremarkable. There are no dilated loops of large or small intestine. The appendix is unremarkable. Vasculature: Unremarkable. Pelvis: Unremarkable. Bones: Unremarkable for age. IMPRESSION: 1. New extrahepatic biliary dilatation. This extends to the head of the pancreas where there is an abrupt transition. Differential diagnosis would include occult choledocholithiasis or in the setting of abnormal pancreatic enzymes, compression secondary to edema at the pancreatic head from pancreatitis. No significant inflammation is seen surrounding the pancreas, however note that the pancreas can be normal on CT scan in setting of mild pancreatitis. Please note that all CT scans at this facility use dose modulation, iterative reconstruction, and/or weight-based dosing when appropriate to reduce radiation dose to as low as reasonably achievable. Dictated by Steve Hayes MD @ Oct 24 2018 6:02AM Signed by Dr. Steve Hayes @ Oct 24 2018 6:10AM
== END 2018-10-24 09:35 ==
LOC: MW.ED 03:41
DX: K85.10 Biliary acute pancreatitis without necrosis or infection (principal); K80.50 Calculus of bile duct without cholangitis or cholecystitis without obstruction
CPT/HCPCS: 36415; 74177; 80053; 81003; 82150; 83690; 85025; 85610; 86677; 96361; 96374; 96375; 96376; 99285; C9113; G0480; J1170; J2270; J2405; J7040; Q9967

== ENCOUNTER 2019-01-01 09:45 | Emergency (ER) | payer BC ==
--- NOTE | 2019-01-01 10:11 | EDM.PDOC ---
ED HPI GENERAL MEDICAL PROBLEM - General Chief Complaint: Wound Recheck Stated Complaint: SURG COMPLAINT--PUSS COMING OUT OF TR Time Seen by Provider: 01/01/19 09:50 - History of Present Illness INITIAL COMMENTS - FREE TEXT/NARRATIVE: .INITIAL COMMENTS - FREE TEXT/NARRATIVE: HISTORY AND PHYSICAL: History of present illness: Patient is a 32-year-old white male who is status post Whipple procedure for pancreatic mass who presents with a concern of wound drainage from his anterior abdominal wound incision he has tr in place and is scheduled for having them removed on Friday he said some increased discharge from the [facility] by his surgeon from [place] for removal of some of the tr to facilitate drainage. There's been no fever chills nausea vomiting or other complaints Review of systems: As per history of present illness and below otherwise all systems reviewed and negative. Past medical history: As per history of present illness and as reviewed below otherwise noncontributory. Surgical history: As per history of present illness and as reviewed below otherwise noncontributory. Social history: No reported history of drug or alcohol abuse. Family history: As per history of present illness and as reviewed below otherwise noncontributory. Physical exam: HEENT: Atraumatic, normocephalic, pupils reactive, negative for conjunctival pallor or scleral icterus, mucous membranes moist, throat clear, neck supple, nontender, trachea midline. Lungs: Clear to auscultation, breath sounds equal bilaterally, chest nontender. Heart: S1S2, regular, negative for clicks, rubs, or JVD. Abdomen: Soft, nondistended, minor incisional wound tenderness there is a small area of dehiscence centrally tr were removed no significant drainage noted patient's did show pictures of more significant drainage as noted during dressing changes. Negative for masses or hepatosplenomegaly. Negative for costovertebral tenderness. Pelvis: Stable nontender. Genitourinary: Deferred. Rectal: Deferred. Extremities: Atraumatic, negative for cords or calf pain. Neurovascular unremarkable. Neuro: Awake, alert, oriented. Cranial nerves II through XII unremarkable. Cerebellum unremarkable. Motor and sensory unremarkable throughout. Exam nonfocal. Diagnostics: None Therapeutics: Staple removal dressing change Impression: #1 history of Whipple procedure #2 minor wound dehiscence rule out wound infection - Related Data Allergies Allergy/AdvReac Type Severity Reaction Status Date / Time No Known Allergies Allergy Verified 01/01/19 09:52 Home Meds: Home Meds Acetaminophen [Tylenol] 1 tab PO ASDIRECTED MDD pain 01/01/19 [History] Gabapentin 300 mg PO TID 01/01/19 [History] oxyCODONE 10 mg PO Q4HR 01/01/19 [History] Past Medical History - Past Health History Medical/Surgical History: Denies Medical/Surgical History HEENT History: Reports: Other (See Below) Other HEENT History: Hearing Loss R ear Cardiovascular History: Reports: None Respiratory History: Reports: Sleep Apnea Gastrointestinal History: Reports: GERD, Pancreatitis Genitourinary History: Reports: None Musculoskeletal History: Reports: None Neurological History: Reports: Other (See Below) Other Neuro History: Mild TBI Psychiatric History: Reports: PTSD Endocrine/Metabolic History: Reports: None Hematologic History: Reports: None Immunologic History: Reports: None Oncologic (Cancer) History: Reports: None Dermatologic History: Reports: Eczema, Other (See Below) Other Dermatologic History: Psoriasis - Infectious Disease History Infectious Disease History: Reports: None - Past Surgical History Head Surgeries/Procedures: Reports: None HEENT Surgical History: Reports: None Cardiovascular Surgical History: Reports: None Respiratory Surgical History: Reports: None GI Surgical History: Reports: None, Other (See Below) Other GI Surgeries/Procedures: Whipple Male Surgical History: Reports: None Endocrine Surgical History: Reports: None Neurological Surgical History: Reports: None Musculoskeletal Surgical History: Reports: None Oncologic Surgical History: Reports: None Dermatological Surgical History: Reports: None Social & Family History - Family History Family Medical History: Noncontributory - Tobacco Use Smoking Status *Q: Never Smoker Second Hand Smoke Exposure: No - Caffeine Use Caffeine Use: Reports: Coffee - Recreational Drug Use Recreational Drug Use: No ED ROS GENERAL - Review of Systems Review Of Systems: ROS reveals no pertinent complaints other than HPI. ED EXAM, GENERAL - Physical Exam Exam: See Below (See dictation) Course - Vital Signs Last Recorded V/S: Last Vital Signs Temp 36.7 C 01/01/19 11:58 Pulse 72 01/01/19 11:58 Resp 13 01/01/19 11:58 BP 141/78 H 01/01/19 11:58 Pulse Ox 98 01/01/19 11:58 - Orders/Labs/Meds Orders: Active Orders 24 hr Category Date Time Status CULTURE BLOOD [BC] Stat Lab 01/01/19 10:40 Received CULTURE BLOOD [BC] Stat Lab 01/01/19 10:51 Received CULTURE WOUND [RM] Stat Lab 01/01/19 10:09 Received Blood Culture x2 Reflex Set [OM.PC] Stat Oth 01/01/19 10:31 Ordered Labs: Laboratory Tests 01/01/19 01/01/19 01/01/19 Range/Units 10:40 10:40 10:40 WBC 13.91 H (4.0-11.0) K/uL RBC 4.24 L (4.50-5.90) M/uL Hgb 12.4 L (13.0-17.0) g/dL Hct 37.5 L (38.0-50.0) % MCV 88.4 (80.0-98.0) fL MCH 29.2 (27.0-32.0) pg MCHC 33.1 (31.0-37.0) g/dL RDW Std Deviation 43.3 (28.0-62.0) fl RDW Coeff of Philip 13 (11.0-15.0) % Plt Count 362 (150-400) K/uL MPV 10.30 (7.40-12.00) fL Add Manual Diff YES Neutrophils % (Manual) 67 (48.0-80.0) % Band Neutrophils % 8 % Lymphocytes % (Manual) 13 L (16.0-40.0) % Monocytes % (Manual) 10 (0.0-15.0) % Eosinophils % (Manual) 2 (0.0-7.0) % Nucleated RBC % 0.0 /100WBC Absolute Seg Neuts 9.3 H (1.4-5.7) Band Neutrophils # 1.1 Lymphocytes # (Manual) 1.8 (0.6-2.4) Monocytes # (Manual) 1.4 H (0.0-0.8) Eosinophils # (Manual) 0.3 (0.0-0.7) Nucleated RBCs # 0 K/uL Lactate 0.9 (0.20-2.00) mmol/L Sodium 138 (136-148) mmol/L Potassium 5.5 H (3.5-5.1) mmol/L Chloride 104 (98-107) mmol/L Carbon Dioxide 24.3 (21.0-32.0) mmol/L BUN 14 (7.0-18.0) mg/dL Creatinine 0.5 L (0.8-1.3) mg/dL Est Cr Clr Drug Dosing 196.72 mL/min Estimated GFR (MDRD) > 60.0 ml/min Glucose 113 H (74-106) mg/dL Calcium 8.8 (8.5-10.1) mg/dL Total Bilirubin 0.3 (0.2-1.0) mg/dL AST 29 (15-37) IU/L ALT 82 H (14-63) IU/L Alkaline Phosphatase 96 (46-116) U/L Total Protein 6.4 (6.4-8.2) g/dL Albumin 2.8 L (3.4-5.0) g/dL Globulin 3.6 (2.6-4.0) g/dL Albumin/Globulin Ratio 0.8 L (0.9-1.6) Meds: Medications Discontinued Medications Generic Name Dose Route Start Last Admin Trade Name Freq PRN Reason Stop Dose Admin Sodium Chloride 1,000 mls @ 999 mls/hr 01/01/19 10:32 01/01/19 10:42 Normal Saline IV 01/01/19 11:32 999 mls/hr STAT ONE Administration Departure - Departure Time of Disposition: 11:59 Disposition: Home, Self-Care 01 Condition: Good Clinical Impression: Encounter for medical screening examination, Wound dehiscence - Discharge Information Referrals: PCP,Unknown [Primary Care Provider] - Forms: ED Department Discharge Additional Instructions: The following information is given to patients seen in the emergency department who are being discharged to home. This information is to outline your options for follow-up care. We provide all patients seen in our emergency department with a follow-up referral. The need for follow-up, as well as the timing and circumstances, are variable depending upon the specifics of your emergency department visit. If you don't have a primary care physician on staff, we will provide you with a referral. We always advise you to contact your personal physician following an emergency department visit to inform them of the circumstance of the visit and for follow-up with them and/or the need for any referrals to a consulting specialist. The emergency department will also refer you to a specialist when appropriate. This referral assures that you have the opportunity for followup care with a specialist. All of these measure are taken in an effort to provide you with optimal care, which includes your followup. Under all circumstances we always encourage you to contact your private physician who remains a resource for coordinating your care. When calling for followup care, please make the office aware that this follow-up is from your recent emergency room visit. If for any reason you are refused follow-up, please contact the [facility] emergency department at and asked to speak to the emergency department charge nurse. Keep scheduled appointment with general surgery Kefatou as prescribed dressing changes as discussed and return as needed as discussed - My Orders Last 24 Hours: My Active Orders 01/01/19 10:09 CULTURE WOUND [RM] Stat 01/01/19 10:31 Blood Culture x2 Reflex Set [OM.PC] Stat 01/01/19 10:40 CULTURE BLOOD [BC] Stat 01/01/19 10:51 CULTURE BLOOD [BC] Stat - Assessment/Plan Last 24 Hours: My Active Orders 01/01/19 10:09 CULTURE WOUND [RM] Stat 01/01/19 10:31 Blood Culture x2 Reflex Set [OM.PC] Stat 01/01/19 10:40 CULTURE BLOOD [BC] Stat 01/01/19 10:51 CULTURE BLOOD [BC] Stat
[2019-01-01] MEDS ORDERED: Sodium Chloride 0.9% 1,000 ML IV ONE (10:32)
[2019-01-01 11:28] LABS: CHLORIDE,CL 104 mmol/L (98-107); SODIUM,NA 138 mmol/L (136-148)
== END 2019-01-01 12:29 | disposition home or self-care (01) ==
LOC: MW.ED 09:45
DX: T81.31XA Disruption of external operation (surgical) wound, not elsewhere classified, initial encounter (principal); Z79.899 Other long term (current) drug therapy
CPT/HCPCS: 36415; 80053; 83605; 85025; 87040; 87070; 96360; 99283; J7040; 87077; 87186

== ENCOUNTER 2019-07-07 14:06 | Emergency (ER) | payer BC ==
[2019-07-07 15:09] LABS: BLOOD UREA NITROGEN,BUN 5 mg/dL (7.0-18.0); CARBON DIOXIDE,CO2 25.6 mmol/L (21.0-32.0); CHLORIDE,CL 105 mmol/L (98-107); GLUCOSE RANDOM 125 mg/dL (74-106); LIPASE 47 U/L (73-393); POTASSIUM,K 4.4 mmol/L (3.5-5.1); SODIUM,NA 141 mmol/L (136-148)
[2019-07-07] MEDS ORDERED: Sodium Chloride 0.9% 1,000 ML IV ONE (15:21)
[2019-07-07] MEDS ORDERED: Morphine 10 MG/ML Syringe IVPUSH ONE (15:21)
[2019-07-07] MEDS ORDERED: Ondansetron 4 MG/2 ML SDV IVPUSH ONE (15:22)
--- NOTE | 2019-07-07 15:48 | EDM.PDOC ---
ED [facility] GENERAL MEDICAL PROBLEM - General Chief Complaint: Abdominal Pain Stated Complaint: SPOKE TO NURSE Time Seen by Provider: 07/07/19 15:46 Source of Information: Reports: Patient History Limitations: Reports: No Limitations - History of Present Illness INITIAL COMMENTS - FREE TEXT/NARRATIVE: Patient is a 29-year-old male with a past medical history of recurrent pancreatitis status post Whipple procedure 6 months ago. Patient reports recurrent pain since the surgery primarily epigastric area radiating to the right upper quadrant. Patient states he has daily pain as well as nausea. Patient states that the pain is similar in character today however the pain is gotten more severe. Patient reports that he ran out of his home pain medication regimen which was oxycodone 30 mg twice daily. Patient states that he ran out of his prescription on Friday and then ever since and his pain is been more increased. Patient reports having MRCP scheduled on 18 July. Patient denies fevers, difficulty passing stool. Pmhx: Recurrent pancreatitis Pshx: Whipple procedure Family Hx: noncontributory Smoking history? no Etoh use? none Drug use? none In addition to that documented in the HPI above, the additional ROS was obtained : Constitutional: Denies fevers or chills Eyes: Denies vision changes ENMT: Denies sore throat CV: Denies chest pain Resp: Denies SOB GI: Per HPI : Denies painful urination MSK: Denies recent trauma Skin: Denies new rashes Neuro: Denies new numbness or tingling or weakness Endocrine: Denies unexpected weight loss Heme: Denies bleeding disorders I have reviewed the triage vital signs Const: Well nourished, well developed, appears stated age Eyes: PERRL, no conjunctival injection HENT: NCAT, Neck supple without meningismus CV: RRR, Warm, well-perfused extremities RESP: CTAB, Unlabored respiratory effort GI: Midline abdominal incision. Soft, non-tender, non-distended, no masses MSK: No gross deformities appreciated Skin: Warm, dry. 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 Sensation and motor function of extremities grossly intact. Psych: Appropriate mood and affect Assessment and plan: Patient is 29-year-old male presenting with abdominal pain. The abdominal pain is chronic in nature while slightly worsened today patient initially stated that he did not have any more oxycodone at home. However on examination of his medical record patient does have at least a week's supply left. Patient's labs and CT are within normal limits and there is no evidence of acute surgical pathology. Patient does feel better after pain medication. Patient will be discharged home with instructions to follow-up with his surgeon as well as medicine doctors for further treatment. Patient has an MRCP scheduled in the next week or 2. Patient given strict return precautions all questions addressed and answered. Patient agrees with plan. right upper abdomen Pain Score (Numeric/FACES): 7 - Related Data Allergies Allergy/AdvReac Type Severity Reaction Status Date / Time No Known Allergies Allergy Verified 07/07/19 14:22 Home Meds: Home Meds ClonazePAM [KlonoPIN] 1 mg PO DAILY PRN 07/07/19 [History] FLUoxetine HCl [Prozac] 40 mg PO DAILY 07/07/19 [History] Metoclopramide HCl [Reglan] 10 mg PO DAILY PRN 07/07/19 [History] Pantoprazole Sodium [Protonix] 40 mg PO DAILY 07/07/19 [History] Sucralfate 1 gm PO Q6HR #60 tablet 07/07/19 [Rx] Past Medical History - Past Health History Medical/Surgical History: Denies Medical/Surgical History HEENT History: Reports: Other (See Below) Other HEENT History: Hearing Loss R ear Cardiovascular History: Reports: None Respiratory History: Reports: Sleep Apnea Gastrointestinal History: Reports: GERD, Pancreatitis Genitourinary History: Reports: None Musculoskeletal History: Reports: None Neurological History: Reports: Other (See Below) Other Neuro History: Mild TBI Psychiatric History: Reports: PTSD Endocrine/Metabolic History: Reports: None Hematologic History: Reports: None Immunologic History: Reports: None Oncologic (Cancer) History: Reports: None Dermatologic History: Reports: Eczema, Other (See Below) Other Dermatologic History: Psoriasis - Infectious Disease History Infectious Disease History: Reports: None - Past Surgical History Head Surgeries/Procedures: Reports: None HEENT Surgical History: Reports: None Cardiovascular Surgical History: Reports: None Respiratory Surgical History: Reports: None GI Surgical History: Reports: None, Other (See Below) Other GI Surgeries/Procedures: Whipple, ERCP x3 Male Surgical History: Reports: None Endocrine Surgical History: Reports: None Neurological Surgical History: Reports: None Musculoskeletal Surgical History: Reports: None Oncologic Surgical History: Reports: None Dermatological Surgical History: Reports: None Social & Family History - Family History Family Medical History: Noncontributory - Tobacco Use Smoking Status *Q: Never Smoker - Caffeine Use Caffeine Use: Reports: Coffee - Recreational Drug Use Recreational Drug Use: No ED ROS GENERAL - Review of Systems Review Of Systems: See Below ED EXAM, GI/ABD - Physical Exam Exam: See Below Course - Vital Signs Last Recorded V/S: Last Vital Signs Temp 36.1 C 07/07/19 14:18 Pulse 43 L 07/07/19 18:05 Resp 15 07/07/19 16:49 BP 133/77 07/07/19 17:55 Pulse Ox 99 07/07/19 17:55 - Orders/Labs/Meds Labs: Laboratory Tests 07/07/19 07/07/19 07/07/19 Range/Units 14:32 14:32 14:33 WBC 7.81 (4.0-11.0) K/uL RBC 5.25 (4.50-5.90) M/uL Hgb 14.6 (13.0-17.0) g/dL Hct 43.8 (38.0-50.0) % MCV 83.4 (80.0-98.0) fL MCH 27.8 (27.0-32.0) pg MCHC 33.3 (31.0-37.0) g/dL RDW Std Deviation 42.3 (28.0-62.0) fl RDW Coeff of Philip 14 (11.0-15.0) % Plt Count 257 (150-400) K/uL MPV 10.40 (7.40-12.00) fL Neut % (Auto) 61.4 (48.0-80.0) % Lymph % (Auto) 26.1 (16.0-40.0) % [place] % (Auto) 10.4 (0.0-15.0) % Eos % (Auto) 0.6 (0.0-7.0) % Baso % (Auto) 1.5 (0.0-1.5) % Neut # (Auto) 4.8 (1.4-5.7) K/uL Lymph # (Auto) 2.0 (0.6-2.4) K/uL [place] # (Auto) 0.8 (0.0-0.8) K/uL Eos # (Auto) 0.1 (0.0-0.7) K/uL Baso # (Auto) 0.1 (0.0-0.1) K/uL Nucleated RBC % 0.0 /100WBC Nucleated RBCs # 0 K/uL Sodium 141 (136-148) mmol/L Potassium 4.4 (3.5-5.1) mmol/L Chloride 105 (98-107) mmol/L Carbon Dioxide 25.6 (21.0-32.0) mmol/L BUN 5 L (7.0-18.0) mg/dL Creatinine 1.0 (0.8-1.3) mg/dL Est Cr Clr Drug Dosing 97.47 mL/min Estimated GFR (MDRD) > 60.0 ml/min Glucose 125 H (74-106) mg/dL Calcium 9.5 (8.5-10.1) mg/dL Total Bilirubin 0.7 (0.2-1.0) mg/dL AST 11 L (15-37) IU/L ALT 23 (14-63) IU/L Alkaline Phosphatase 97 (46-116) U/L Total Protein 7.8 (6.4-8.2) g/dL Albumin 4.2 (3.4-5.0) g/dL Globulin 3.6 (2.6-4.0) g/dL Albumin/Globulin Ratio 1.2 (0.9-1.6) Lipase 47 L (73-393) U/L Urine Color YELLOW Urine Appearance CLEAR Urine pH 7.0 (5.0-8.0) Ur Specific [place] <= 1.005 (1.001-1.035) Urine Protein NEGATIVE (NEGATIVE) mg/dL Urine Glucose (UA) NEGATIVE (NEGATIVE) mg/dL Urine Ketones NEGATIVE (NEGATIVE) mg/dL Urine Occult Blood NEGATIVE (NEGATIVE) Urine Nitrite NEGATIVE (NEGATIVE) Urine Bilirubin NEGATIVE (NEGATIVE) Urine Urobilinogen 0.2 (<2.0) EU/dL Ur Leukocyte Esterase NEGATIVE (NEGATIVE) Meds: Medications Discontinued Medications Generic Name Dose Route Start Last Admin Trade Name Freq PRN Reason Stop Dose Admin Sodium Chloride 1,000 mls @ 999 mls/hr 07/07/19 15:21 07/07/19 15:35 Normal Saline IV 07/07/19 16:21 999 mls/hr .Bolus ONE Administration Iopamidol 100 ml 07/07/19 16:29 07/07/19 16:30 Isovue Multipack-370 (76%) IVPUSH 07/07/19 16:30 100 ml ONETIME ONE Administration Morphine Sulfate 8 mg 07/07/19 15:21 07/07/19 15:35 Morphine IVPUSH 07/07/19 15:22 8 mg ONETIME ONE Administration Ondansetron HCl 4 mg 07/07/19 15:22 07/07/19 15:35 Zofran IVPUSH 07/07/19 15:23 4 mg ONETIME ONE Administration Departure - Departure Time of Disposition: 17:47 Disposition: Home, Self-Care 01 Clinical Impression: Abdominal pain Qualifiers: Abdominal location: epigastric Qualified Code(s): R10.13 - Epigastric pain - Discharge Information Prescriptions: Sucralfate 1 gm PO Q6HR #60 tablet Instructions: Abdominal Pain, Adult, [id number] Referrals: Matthew Darden MD [Primary Care Provider] - Forms: ED Department Discharge Additional Instructions: The following information is given to patients seen in the emergency department who are being discharged to home. This information is to outline your options for follow-up care. We provide all patients seen in our emergency department with a follow-up referral. The need for follow-up, as well as the timing and circumstances, are variable depending upon the specifics of your emergency department visit. If you don't have a primary care physician on staff, we will provide you with a referral. We always advise you to contact your personal physician following an emergency department visit to inform them of the circumstance of the visit and for follow-up with them and/or the need for any referrals to a consulting specialist. The emergency department will also refer you to a specialist when appropriate. This referral assures that you have the opportunity for follow-up care with a specialist. All of these measure are taken in an effort to provide you with optimal care, which includes your follow-up. Under all circumstances we always encourage you to contact your private physician who remains a resource for coordinating your care. When calling for follow-up care, please make the office aware that this follow-up is from your recent emergency room visit. If for any reason you are refused follow-up, please contact the [facility] Emergency Department at and asked to speak to the emergency department charge nurse. Sepsis Event Note - Evaluation Sepsis Screening Result: No Definite Risk - Focused Exam Date Exam was Performed: 07/08/19 Time Exam was Performed: 13:23
[2019-07-07] MEDS ORDERED: Iopamidol 755 MG/ML 200 ML Multipack Bottle IVPUSH ONE (16:29)
--- NOTE | 2019-07-07 17:03 | CT ---
CT abdomen and pelvis Technique: Multiple axial sections were obtained from above the dome of the diaphragm inferiorly through the pubic symphysis. Intravenous contrast was utilized. No oral contrast has been given. Comparison: Prior CT abdomen and pelvis study of 10/24/18. Findings: Visualized lung bases shows minimal atelectasis. Liver contains no focal abnormality. Surgical clips are seen compatible with a history of prior Whipple procedure. Adrenal glands show no nodule. Remaining portions of the pancreas shows no discrete abnormality. Spleen appears within normal limits. Small amount of accessory splenic tissue is seen off the medial spleen. Kidneys show symmetric contrast enhancement. Low density lesion is identified within the right kidney which most likely represents a cyst measuring 2.5 cm. This cyst appears stable from previous exam. No additional abnormalities are seen within the kidneys. Aorta shows no aneurysm. No retroperitoneal adenopathy or mesenteric abnormalities are seen. Appendix is seen which is normal. No pelvic mass or adenopathy is seen. Increased density is noted within the bladder. Difficult to exclude blood clot or bladder tumor. No free fluid or inflammatory change is seen. Bone window settings were reviewed which shows no acute osseous finding. Impression: 1. Surgical clips compatible with history of previous Whipple procedure. 2. Increased density within the bladder either due to blood clot or bladder tumor. 3. Cyst within the right kidney which is stable. 4. Other findings as noted above believed to be incidental. 5. No acute finding is otherwise seen. Diagnostic code #9 This report was dictated in [place] Standard Time
== END 2019-07-07 18:10 | disposition home or self-care (01) ==
LOC: MW.ED 14:06
DX: R10.13 Epigastric pain (principal); K21.9 Gastro-esophageal reflux disease without esophagitis; F43.10 Post-traumatic stress disorder, unspecified; Z79.899 Other long term (current) drug therapy
CPT/HCPCS: 36415; 74177; 80053; 81003; 83690; 85025; 96361; 96374; 96375; 99284; J2270; J2405; J7030; Q9967

== ENCOUNTER 2019-07-20 11:04 | Emergency (ER) | payer OTHER, BC ==
--- NOTE | 2019-07-20 12:36 | CT ---
Head CT Technique: Multiple axial sections through the brain were obtained. Intravenous contrast was not utilized. Comparison: No prior intracranial imaging is available. Findings: Ventricles along with basal cisterns and sulci over the convexities are within normal limits for the patient's age. No abnormal parenchymal densities are seen. No evidence of intracranial hemorrhage. No midline shift or mass effect is seen. Bone window settings were reviewed. Visualized paranasal sinuses show nothing acute. Mastoid sinus is also showed nothing acute. No acute calvarial abnormality is seen. Impression: 1. Nothing acute is appreciated on noncontrast head CT exam. Diagnostic code #1 Study was dictated in [place] Standard Time
[2019-07-20 12:45] LABS: BLOOD UREA NITROGEN,BUN 10 mg/dL (7.0-18.0); CARBON DIOXIDE,CO2 24.9 mmol/L (21.0-32.0); CHLORIDE,CL 104 mmol/L (98-107); GLUCOSE RANDOM 112 mg/dL (74-106); POTASSIUM,K 4.7 mmol/L (3.5-5.1); SODIUM,NA 141 mmol/L (136-148)
--- NOTE | 2019-07-20 13:58 | EDM.PDOC ---
ED HPI GENERAL MEDICAL PROBLEM - General Chief Complaint: General Stated Complaint: RECENT MED CHANGE. CONFUSED AND DIZZY Time Seen by Provider: 07/20/19 11:15 - History of Present Illness INITIAL COMMENTS - FREE TEXT/NARRATIVE: HPI 29-year-old male with history of anxiety, depression, and pancreatic benign lesion (s/p Whipple) presents for evaluation several days of mild confusion after recent medication changes, denies drug use, no fevers, chills, or further symptoms. Patient notes that his symptoms are oftentimes lessened after taking a nap. He discontinued his Xanax 4 days ago and had his Cymbalta initiate approximately one week ago with a dose increase from 30 to 60 mg daily made yesterday. M/S/F/SocHx notable for: please see HPI; remainder reviewed with patient and in chart. Medications: clonazepam, fluoxetine. ROS: Negative constitutional, eye, cardiovascular, pulmonary, GI, , MSK, skin , neurologic, psychiatric, endocrine unless noted in the HPI. Exam HR 60, RR 18, BP 138/88, T 36.6C, SaO2 90% on room air. Gen: Pleasant, non-toxic appearing, resting comfortably. HEENT: NC, AT, PEERL, EOMI. Resp: Clear to auscultation bilaterally, normal work of breathing, no accessory muscle usage. Card: Regular rate and rhythm with no murmurs, rubs, or gallops, extremities warm and well perfused. GI: Non-tender to palpation throughout all quadrants, no focal tenderness at McBurney's point, negative Aguilera's sign, non-distended, no rebound or guarding. : No suprapubic tenderness to palpation. MSK: No visible deformities, strength and tone without visually appreciable deficit. Skin: Normal color with no visible lesions. Neuro: alert and oriented to self and location, believes it is 07/21/19 and Friday (currently 07/20/19 and Friday) no facial asymmetry, no gaze preference , no slurring of speech. CN II-III: pupils equal and reactive (4->2mm bilaterally); III, IV, : EOMI, V1-V3: sensation to touch bilaterally intact; VII: no facial asymmetry (frown / smile); VIII: no nystagmus; X: phonation intact, uvula midline; XI: trapezius 5/5 bilaterally, XII: tongue midline. Cerebellar: no pronator drift, [id number] testing without dysmetria bilaterally, heel to moura without dysmetria bilaterally. Motor: 5/5 dorsiflexion/external rotation, elbow flexion and extension, shoulder abduction; all tested bilaterally. Reflexes: 2+ patellar reflexes bilaterally, bilateral ankles without clonus. Psych: mildly anxious mood and affect. Labs / Imaging: WBC 7.32, HB 16.3, sodium 141, potassium 4.7, AST 23, ALT 31, AG 12.1, TSH 0.58. UDS with oxycodone. EtOH < 3 EKG: SR at 61 BPM, QRS 85 msec, QTc 414 msec, no ST-segment elevations or depressions, T-wave inversions or new LBBB. CT Head: nothing acute is seen on non-contrast head CT exam. MDM Previous chart, nursing note, labs, imaging, and vitals reviewed. A: 29-year-old male with history of anxiety, depression, and pancreatic benign lesion (s/p Whipple) presents for evaluation several days of mild confusion after recent medication changes. DDx: medication side effects, electrolyte abnormality, toxidrome, encephalitis, encephalopathy, tumor ([employer] versus peripheral with paraneoplastic syndrome), anxiety and/or depression with somatoform features. Hypothyroidism, hyperthyroidism. Evaluation: patient without focal abnormalities, no features suggestive of an infectious [employer] process, cannot definitively exclude a mild viral concurrent pathology exacerbating current symptoms (e.g. subclinical influenza or URI); however this is felt to be less likely. While the patients UDS has oxycodone ( in this is not noted on the patients record medications in the EMR, the patient thats the has been prescribed PRN oxycodone for pain control). The patient is without overt clinical features of opiate toxidrome or further appreciable toxidrome of the present time. CT head is without evidence of abnormality, paraneoplastic syndrome is considered unlikely as the patients original pancreatic lesion was noncancerous and he has no further suggestive features on history, ROS, or exam. TSH WNL. Given the occurrences symptoms after initiating Cymbalta and then exacerbation after a dose increase suspect medication side effect at the present time. Recommend reducing Cymbalta to 30 mg and contacting the patients prescribing provider for further care as appropriate. ED Course: patient resting comfortably, reduced symptomatology, repeat evaluation at 1:40 PM with patient alert and oriented 3. Impression: fatigue, confusion. - Related Data Allergies Allergy/AdvReac Type Severity Reaction Status Date / Time No Known Allergies Allergy Verified 07/20/19 11:15 Home Meds: Home Meds ClonazePAM [KlonoPIN] 1 mg PO DAILY PRN 07/07/19 [History] FLUoxetine HCl [Prozac] 40 mg PO DAILY 07/07/19 [History] Metoclopramide HCl [Reglan] 10 mg PO DAILY PRN 07/07/19 [History] Pantoprazole Sodium [Protonix] 40 mg PO DAILY 07/07/19 [History] Sucralfate 1 gm PO Q6HR #60 tablet 07/07/19 [Rx] Past Medical History - Past Health History Medical/Surgical History: Denies Medical/Surgical History HEENT History: Reports: Other (See Below) Other HEENT History: Hearing Loss R ear Cardiovascular History: Reports: None Respiratory History: Reports: Sleep Apnea Gastrointestinal History: Reports: GERD, Pancreatitis Genitourinary History: Reports: None Musculoskeletal History: Reports: None Neurological History: Reports: Other (See Below) Other Neuro History: Mild TBI Psychiatric History: Reports: PTSD Endocrine/Metabolic History: Reports: None Hematologic History: Reports: None Immunologic History: Reports: None Oncologic (Cancer) History: Reports: None Dermatologic History: Reports: Eczema, Other (See Below) Other Dermatologic History: Psoriasis - Infectious Disease History Infectious Disease History: Reports: None - Past Surgical History Head Surgeries/Procedures: Reports: None HEENT Surgical History: Reports: None Cardiovascular Surgical History: Reports: None Respiratory Surgical History: Reports: None GI Surgical History: Reports: None, Other (See Below) Other GI Surgeries/Procedures: Whipple, ERCP x3 Male Surgical History: Reports: None Endocrine Surgical History: Reports: None Neurological Surgical History: Reports: None Musculoskeletal Surgical History: Reports: None Oncologic Surgical History: Reports: None Dermatological Surgical History: Reports: None Social & Family History - Family History Family Medical History: Noncontributory - Tobacco Use Smoking Status *Q: Never Smoker Second Hand Smoke Exposure: No - Caffeine Use Caffeine Use: Reports: None - Recreational Drug Use Recreational Drug Use: No ED ROS GENERAL - Review of Systems Review Of Systems: See Below ED EXAM, GENERAL - Physical Exam Exam: See Below Course - Vital Signs Last Recorded V/S: Last Vital Signs Temp 36.3 C 07/20/19 11:13 Pulse 60 07/20/19 11:13 Resp 18 07/20/19 11:13 BP 138/88 07/20/19 11:13 Pulse Ox 98 07/20/19 11:13 - Orders/Labs/Meds Orders: Active Orders 24 hr Category Date Time Status EKG Documentation Completion [RC] STAT Care 07/20/19 12:21 Active Labs: Laboratory Tests 07/20/19 07/20/19 07/20/19 Range/Units 11:45 11:52 12:16 WBC 7.32 (4.0-11.0) K/uL RBC 5.75 (4.50-5.90) M/uL Hgb 16.3 (13.0-17.0) g/dL Hct 48.7 (38.0-50.0) % MCV 84.7 (80.0-98.0) fL MCH 28.3 (27.0-32.0) pg MCHC 33.5 (31.0-37.0) g/dL RDW Std Deviation 43.0 (28.0-62.0) fl RDW Coeff of Philip 14 (11.0-15.0) % Plt Count 205 (150-400) K/uL MPV 10.80 (7.40-12.00) fL Neut % (Auto) 73.3 (48.0-80.0) % Lymph % (Auto) 16.4 (16.0-40.0) % Johnson % (Auto) 7.7 (0.0-15.0) % Eos % (Auto) 1.4 (0.0-7.0) % Baso % (Auto) 1.2 (0.0-1.5) % Neut # (Auto) 5.4 (1.4-5.7) K/uL Lymph # (Auto) 1.2 (0.6-2.4) K/uL Johnson # (Auto) 0.6 (0.0-0.8) K/uL Eos # (Auto) 0.1 (0.0-0.7) K/uL Baso # (Auto) 0.1 (0.0-0.1) K/uL Nucleated RBC % 0.0 /100WBC Nucleated RBCs # 0 K/uL Sodium 141 (136-148) mmol/L Potassium 4.7 (3.5-5.1) mmol/L Chloride 104 (98-107) mmol/L Carbon Dioxide 24.9 (21.0-32.0) mmol/L BUN 10 (7.0-18.0) mg/dL Creatinine 0.9 (0.8-1.3) mg/dL Est Cr Clr Drug Dosing 108.30 mL/min Estimated GFR (MDRD) > 60.0 ml/min Glucose 112 H (74-106) mg/dL Calcium 9.7 (8.5-10.1) mg/dL Total Bilirubin 0.6 (0.2-1.0) mg/dL AST 23 (15-37) IU/L ALT 31 (14-63) IU/L Alkaline Phosphatase 95 (46-116) U/L Total Protein 7.4 (6.4-8.2) g/dL Albumin 4.0 (3.4-5.0) g/dL Globulin 3.4 (2.6-4.0) g/dL Albumin/Globulin Ratio 1.2 (0.9-1.6) TSH 3rd Generation 0.58 (0.36-3.74) uIU/mL Urine Opiates Screen NEGATIVE (NEGATIVE) Ur Oxycodone Screen POSITIVE (NEGATIVE) Urine Methadone Screen NEGATIVE (NEGATIVE) Ur Barbiturates Screen NEGATIVE (NEGATIVE) Ur Phencyclidine Scrn NEGATIVE (NEGATIVE) Ur Amphetamine Screen NEGATIVE (NEGATIVE) U Methamphetamines Scrn NEGATIVE (NEGATIVE) U Benzodiazepines Scrn NEGATIVE (NEGATIVE) U Cocaine Metab Screen NEGATIVE (NEGATIVE) U Marijuana (THC) Screen NEGATIVE (NEGATIVE) Ethyl Alcohol <3 mg/dL Departure - Departure Time of Disposition: 13:58 Disposition: Home, Self-Care 01 Clinical Impression: Confusion, Fatigue - Discharge Information Referrals: Matthew Darden MD [Primary Care Provider] - Additional Instructions: You were in seen in the [facility] Emergency Department for evaluation of feeling unwell. At the time of your evaluation your symptoms are tentatively believed to be due to a medication side effect. Please reduce your Cymbalta from 60 to 30 mg daily and contact Dr. Darden immediately for further recommendations as appropriate. Please read and follow all of the instructions below. When calling for follow-up care, please make the office aware that this follow- up is from your recent emergency room visit. If for any reason you are refused follow-up, please contact the [facility] Emergency Department at and asked to speak to the emergency department charge nurse. Your care today was limited to identifying and treating emergent medical problems only. Many people have subtle differences in their test results that require follow up with their outpatient physician(s) to correctly determine if this represents a normal variation or concerning abnormality with respect to your specific health. The care given to you today was limited to identifying and treating emergent medical problems - you need to request a copy of all of your medical records from today's visit and follow up with your outpatient physician(s) to review both today's visit and your overall health. If you have any new symptoms or if you are at all concerned about your health please return immediately to the emergency department. Prescriptions: If you are uninsured or have financial difficulties with filling your prescription(s), you may consider using a free pharmacy discount service such as [employer] ([employer]) or [employer] ([employer]). These services allow you to search for a medication on your phone (or computer) and obtain a coupon that usually has a significant discount from the list valle at a pharmacy. Your physician as well as [facility] does not have a financial relationship with either of these services. You may also wish to speak with your physician to determine if lower cost prescriptions are possible. Obtaining primary care: 1. [facility] provides pediatrics (children), family medicine (children, adults, and some obstetrical care), and internal medicine (adults). Further specialty care is also available. Same day appointments are available. They may be contacted at [phone] and are open Friday through Friday 8 AM to 5 PM. The [facility] are located at [facility], [address] [place] [address]. 2. [facility] offers family medicine, internal medicine, womens health, and further specialty care. [facility] may be contacted at [phone]. [facility] is located at [address] [facility], [place], [address]. 3. If you have health insurance, please also contact your insurer for a list of accepting providers under your policy, you may contact these providers for further health care. Occupational health: Work related injuries may consider following up with [facility], . Occupational health services are located at [address] [place] [address] and are open Friday through Friday from 7: 30 am to 5:00 pm. Obstetrical and Gynecological Care: [facility], , Friday through Friday 8 AM to 5 PM. [address] [facility] [place] [address]. Eyecare: If you have an eye injury you should follow up with your diesel inspector or with [facility], at [phone] or [phone] , they are located at [address] [place] [address]. Dental Care Héctor Salmeron DDS. [address] [place], [place]. Ph. [phone] Benton Salmeron DDS MS. [address] [facility] [address], [place], [place]. Ph. [phone] Freedom Carney DDS. 10 [address] [place] [address]. Ph. [phone] Bakari Salgado DDS. [address] [facility] [address] [place], [place]. Ph. [phone] Erickson Hodgson DDS PC. [address] [facility] [address] [place], [place]. Ph. Naina Bueno DDS. [address] [facility]. Ph. [phone] [facility]. [address] [place], [place]. Ph. [phone] [facility]. [address] [place] [address], [place], [place]. Ph. [phone] [facility] [address] [place] [phone]. Ph. [facility]. [address] [place] [address] [address] CARIN Neely. Ph. [facility]. [address], CARIN Neely. Ph. [phone] Sepsis Event Note - Evaluation Sepsis Screening Result: No Definite Risk - Focused Exam Vital Signs: Vital Signs Temp Pulse Resp BP Pulse Ox 07/20/19 11:13 36.3 C 60 18 138/88 98 Date Exam was Performed: 07/20/19 Time Exam was Performed: 13:57 - My Orders Last 24 Hours: My Active Orders 07/20/19 12:21 EKG Documentation Completion [RC] STAT - Assessment/Plan Last 24 Hours: My Active Orders 07/20/19 12:21 EKG Documentation Completion [RC] STAT
== END 2019-07-20 14:14 | disposition home or self-care (01) ==
LOC: MW.ED 11:04
DX: R41.0 Disorientation, unspecified (principal); R53.83 Other fatigue; K21.9 Gastro-esophageal reflux disease without esophagitis; F43.10 Post-traumatic stress disorder, unspecified; Z79.899 Other long term (current) drug therapy
CPT/HCPCS: 36415; 70450; 70450-26; 80053; 80305-QW; 80307; 84443; 85025; 93005; 99284; 99285-25